=== PATIENT | male | born 1935 | race Caucasian/White ===

== ENCOUNTER 2017-11-08 11:58 | Emergency (ER) | payer MEDICARE ==
[~2017-11-08] VITALS: Ht 182.9 cm; Wt 85.3 kg
[~2017-11-08 11:58] MED LIST: CLOP75 PO; GABA100 PO; HYDACE5325 PO; LEVSOD75 PO; METO25ER PO
[2017-11-08] MEDS ORDERED: ATOR10 PO (12:20)
[2017-11-08 13:20] LABS: BASOPHILS ABSOLUTE AUTO 0.02 K/mm3 (0.00-0.23); BASOPHILS PERCENT AUTO 0 % (0-2); EOSINOPHILS PERCENT AUTO 5 % (0-6); Hematocrit 44.1 % (37.0-53.0); Hemoglobin 14.6 g/dL (13.5-17.5); IMMATURE GRAN ABSOLUTE AUTO 0.04 K/mm3 (0.00-0.10); IMMATURE GRAN PERCENT AUTO 0 % (0-1); LYMPHOCYTES PERCENT AUTO 19 % (21-46); MONOCYTES ABSOLUTE AUTO 0.78 K/mm3 (0.16-1.47); MONOCYTES PERCENT AUTO 9 % (4-13); Mean Corpuscular HGB 32.4 pg (26.0-34.0); Mean Corpuscular HGB Conc 33.1 g/dL (31.5-36.5); Mean Corpuscular Volume 98 fL (80-100); Mean Platelet Volume 9.4 fL (9.1-12.4); NEUTROPHILS ABSOLUTE AUTO 6.04 K/mm3 (1.96-9.15); NEUTROPHILS PERCENT AUTO 67 % (41-73); Platelet Count 555 K/mm3 (150-400); RDW Coefficient Variation 13.7 % (11.7-14.2); White Blood Cell Count 8.98 K/mm3 (4.00-11.30)
[2017-11-08 13:45] LABS: Alanine Aminotransfer (ALT/SGP 30 U/L (12-78); Albumin, Blood 3.8 g/dL (3.4-5.0); Albumin/Globulin Ratio 1.2 (0.8-1.8); Alk Phos 59 U/L (50-136); Anion Gap 8 mmol/L (6-16); Aspartate Aminotrans (AST/SGOT 35 U/L (12-37); Bilirubin, Total 0.8 mg/dL (0.1-1.0); Blood Urea Nitrogen 19 mg/dL (8-24); Bun/Creatinine Ratio 20.8 (12.0-20.0); CO2, Blood 27 mmol/L (21-32); Calcium, Blood 8.7 mg/dL (8.5-10.1); Chloride, Blood 105 mmol/L (98-108); Creatinine, Blood 0.92 mg/dL (0.60-1.20); Globulin, Blood 3.2 g/dL (2.2-4.0); Glomerular Filtration Rate >60 (60-); Glucose, Blood 95 mg/dL (70-99); Potassium, Blood 4.4 mmol/L (3.5-5.5); Sodium, Blood 140 mmol/L (136-145); Troponin I <0.015 ng/mL (0.000-0.040)
== END 2017-11-08 16:08 | disposition home or self-care (01) ==
LOC: ER 11:58
PROVIDERS: Emergency Medicine
DX: R07.89 Other chest pain (principal); I25.2 Old myocardial infarction; Z87.891 Personal history of nicotine dependence; Z79.899 Other long term (current) drug therapy
CPT/HCPCS: 36415; 71046; 71275; 74175; 80053; 83690; 84484; 85025; 93005; 93010; 99284; Q9967

== ENCOUNTER 2019-12-02 08:20 | Emergency (ER) | payer OTHER, MEDICARE ==
[~2019-12-02] VITALS: Ht 185.4 cm; Wt 88.5 kg
[~2019-12-02 08:20] MED LIST changes: +ATOR10 PO
[2019-12-02 08:58] LABS: BASOPHILS ABSOLUTE AUTO 0.07 K/mm3 (0.00-0.23); BASOPHILS PERCENT AUTO 0 % (0-2); EOSINOPHILS ABSOLUTE AUTO 0.08 K/mm3 (0.00-0.68); EOSINOPHILS PERCENT AUTO 0 % (0-6); Hemoglobin 14.8 g/dL (13.5-17.5); IMMATURE GRAN PERCENT AUTO 1 % (0-1); LYMPHOCYTES PERCENT AUTO 7 % (21-46); MONOCYTES ABSOLUTE AUTO 1.15 K/mm3 (0.16-1.47); MONOCYTES PERCENT AUTO 6 % (4-13); Mean Corpuscular HGB 32.7 pg (26.0-34.0); Mean Corpuscular HGB Conc 33.6 g/dL (31.5-36.5); Mean Corpuscular Volume 97 fL (80-100); Mean Platelet Volume 9.2 fL (9.1-12.4); NEUTROPHILS PERCENT AUTO 85 % (41-73); RDW Coefficient Variation 13.3 % (11.7-14.2); RDW Standard Deviation 47.7 fL (35.1-46.3); Red Blood Cell Count 4.53 M/mm3 (4.30-5.90)
[2019-12-02 09:03] LABS: Alanine Aminotransfer (ALT/SGP 34 U/L (12-78); Albumin, Blood 3.8 g/dL (3.4-5.0); Albumin/Globulin Ratio 1.1 (0.8-1.8); Alk Phos 64 U/L (50-136); Anion Gap 4 mmol/L (6-16); Aspartate Aminotrans (AST/SGOT 23 U/L (12-37); Bilirubin, Total 0.8 mg/dL (0.1-1.0); Blood Urea Nitrogen 29 mg/dL (8-24); Bun/Creatinine Ratio 32.5 (12.0-20.0); CO2, Blood 28 mmol/L (21-32); Calcium, Blood 9.2 mg/dL (8.5-10.1); Chloride, Blood 107 mmol/L (98-108); Creatinine, Blood 0.89 mg/dL (0.60-1.20); Globulin, Blood 3.4 g/dL (2.2-4.0); Glomerular Filtration Rate >60 (60-); Glucose, Blood 132 mg/dL (70-99); Potassium, Blood 4.3 mmol/L (3.5-5.5); Sodium, Blood 139 mmol/L (136-145); Total Protein, Blood 7.2 g/dL (6.4-8.2); Troponin I <0.015 ng/mL (0.000-0.040)
[2019-12-02 09:05] LABS: Platelet Count 1015 K/mm3 (150-400)
[2019-12-02 10:15] LABS: International Normalized Ratio 1.08; Prothrombin Time Results 11.5 Sec (9.7-11.5)
[2019-12-02 10:56] LABS: Source, Urine Clean Catch
[2019-12-02 11:04] LABS: Bilirubin, Urine Neg (Neg); Blood, Urine Neg (Neg); Glucose Qualitative, Urine Neg (Neg); Ketones, Urine Neg (Neg); Leukocyte Esterase, Urine Neg (Neg); Nitrite, Urine Neg (Neg); Protein, Urine Neg (Neg); Urobilinogen, Urine NORM (Normal); pH, Urine 6.5 (5.0-8.0)
[2019-12-02 11:23] LABS: Appearance, Urine Clear (Clear); Color, Urine Yellow (P-Yellow)
[2019-12-02] MEDS ORDERED: HYDURE500 PO (12:12)
== END 2019-12-02 12:56 | disposition home or self-care (01) ==
LOC: ER 08:20
PROVIDERS: Emergency Medicine
DX: G45.9 Transient cerebral ischemic attack, unspecified (principal); M31.1 Thrombotic microangiopathy; Z79.899 Other long term (current) drug therapy; I25.2 Old myocardial infarction; I10 Essential (primary) hypertension; E03.9 Hypothyroidism, unspecified; I25.10 Atherosclerotic heart disease of native coronary artery without angina pectoris; Z87.891 Personal history of nicotine dependence
CPT/HCPCS: 36415; 70450; 71046; 71260; 74177; 80053; 81003; 83605; 83690; 84484; 85025; 85610; 85730; 93005; 93010; 96360-59; 96361; 99285-25; J7030; Q9967

== ENCOUNTER 2020-11-16 10:44 | Emergency (ER) | payer MEDICARE, OTHER ==
[~2020-11-16] VITALS: Ht 182.9 cm; Wt 81.7 kg
[~2020-11-16 10:44] MED LIST changes: -ATOR10 PO; +ATOR20 PO; +B-121000 MC3 PO; +FAMO20 PO; +FLUT.05NI; +HYDURE500 PO; +Hytrin2 MG PO; +LEVSOD112 PO; +LIDO700A20 TOP; +LOSA25 PO; +MULTI VITAMIN1 EACH PO; +Methocarbamol500 MG PO; +NITR.4SL SL; +Voltaren100 GM TOP
[2020-11-16 11:31] LABS: BASOPHILS ABSOLUTE AUTO 0.07 K/mm3 (0.00-0.23); BASOPHILS PERCENT AUTO 1 % (0-2); EOSINOPHILS ABSOLUTE AUTO 0.24 K/mm3 (0.00-0.68); EOSINOPHILS PERCENT AUTO 3 % (0-6); IMMATURE GRAN ABSOLUTE AUTO 0.03 K/mm3 (0.00-0.10); IMMATURE GRAN PERCENT AUTO 0 % (0-1); LYMPHOCYTES ABSOLUTE AUTO 1.16 K/mm3 (0.84-5.20); LYMPHOCYTES PERCENT AUTO 15 % (21-46); MONOCYTES ABSOLUTE AUTO 0.79 K/mm3 (0.16-1.47); MONOCYTES PERCENT AUTO 10 % (4-13); Mean Corpuscular HGB 36.1 pg (26.0-34.0); Mean Corpuscular HGB Conc 33.3 g/dL (31.5-36.5); Mean Corpuscular Volume 108 fL (80-100); Mean Platelet Volume 9.1 fL (9.1-12.4); NEUTROPHILS ABSOLUTE AUTO 5.41 K/mm3 (1.96-9.15); NEUTROPHILS PERCENT AUTO 70 % (41-73); Platelet Count 515 K/mm3 (150-400); RDW Coefficient Variation 12.5 % (11.7-14.2); RDW Standard Deviation 49.2 fL (35.1-46.3); Red Blood Cell Count 3.88 M/mm3 (4.30-5.90)
[2020-11-16 11:41] LABS: International Normalized Ratio 1.05; Prothrombin Time Results 11.2 Sec (9.7-11.5)
[2020-11-16 11:48] LABS: Alanine Aminotransfer (ALT/SGP 22 U/L (12-78); Albumin, Blood 3.7 g/dL (3.4-5.0); Albumin/Globulin Ratio 1.2 (0.8-1.8); Alk Phos 68 U/L (50-136); Anion Gap 3 mmol/L (6-16); Aspartate Aminotrans (AST/SGOT 24 U/L (12-37); Bilirubin, Total 0.7 mg/dL (0.1-1.0); Blood Urea Nitrogen 22 mg/dL (8-24); Bun/Creatinine Ratio 24.1 (12.0-20.0); CO2, Blood 30 mmol/L (21-32); Chloride, Blood 107 mmol/L (98-108); Creatinine, Blood 0.91 mg/dL (0.60-1.20); Globulin, Blood 3.1 g/dL (2.2-4.0); Glomerular Filtration Rate >60 (60-); Glucose, Blood 99 mg/dL (70-99); Potassium, Blood 4.6 mmol/L (3.5-5.5); Sodium, Blood 140 mmol/L (136-145); Total Protein, Blood 6.8 g/dL (6.4-8.2); Troponin I <0.015 ng/mL (0.000-0.040)
== END 2020-11-16 14:21 | disposition home or self-care (01) ==
LOC: ER 10:44
PROVIDERS: Emergency Medicine
DX: I48.91 Unspecified atrial fibrillation (principal); Z91.09 Other allergy status, other than to drugs and biological substances; Z79.82 Long term (current) use of aspirin; Z79.899 Other long term (current) drug therapy
CPT/HCPCS: 71045; 80053; 84484; 85025; 85610; 99285-25

== ENCOUNTER 2021-01-14 14:09 | Emergency (ER) | payer OTHER, MEDICARE ==
[~2021-01-14] VITALS: Ht 182.9 cm; Wt 81.7 kg
[2021-01-14 14:45] LABS: BASOPHILS ABSOLUTE AUTO 0.07 K/mm3 (0.00-0.23); BASOPHILS PERCENT AUTO 1 % (0-2); EOSINOPHILS ABSOLUTE AUTO 0.21 K/mm3 (0.00-0.68); EOSINOPHILS PERCENT AUTO 3 % (0-6); Hematocrit 41.7 % (37.0-53.0); Hemoglobin 13.9 g/dL (13.5-17.5); IMMATURE GRAN ABSOLUTE AUTO 0.04 K/mm3 (0.00-0.10); IMMATURE GRAN PERCENT AUTO 1 % (0-1); LYMPHOCYTES ABSOLUTE AUTO 1.32 K/mm3 (0.84-5.20); LYMPHOCYTES PERCENT AUTO 18 % (21-46); MONOCYTES ABSOLUTE AUTO 0.71 K/mm3 (0.16-1.47); MONOCYTES PERCENT AUTO 10 % (4-13); Mean Corpuscular HGB Conc 33.3 g/dL (31.5-36.5); Mean Corpuscular Volume 105 fL (80-100); Mean Platelet Volume 9.2 fL (9.1-12.4); NEUTROPHILS ABSOLUTE AUTO 5.05 K/mm3 (1.96-9.15); NEUTROPHILS PERCENT AUTO 68 % (41-73); Platelet Count 486 K/mm3 (150-400); RDW Coefficient Variation 12.7 % (11.7-14.2); RDW Standard Deviation 49.1 fL (35.1-46.3); Red Blood Cell Count 3.97 M/mm3 (4.30-5.90)
[2021-01-14 15:05] LABS: Alanine Aminotransfer (ALT/SGP 28 U/L (12-78); Albumin, Blood 3.6 g/dL (3.4-5.0); Albumin/Globulin Ratio 1.1 (0.8-1.8); Alk Phos 63 U/L (50-136); Anion Gap 4 mmol/L (6-16); Aspartate Aminotrans (AST/SGOT 22 U/L (12-37); Bilirubin, Total 0.9 mg/dL (0.1-1.0); Blood Urea Nitrogen 33 mg/dL (8-24); Bun/Creatinine Ratio 34.2 (12.0-20.0); CO2, Blood 30 mmol/L (21-32); Calcium, Blood 9.1 mg/dL (8.5-10.1); Chloride, Blood 108 mmol/L (98-108); Creatinine, Blood 0.97 mg/dL (0.60-1.20); Globulin, Blood 3.2 g/dL (2.2-4.0); Glomerular Filtration Rate >60 (60-); Glucose, Blood 87 mg/dL (70-99); Potassium, Blood 4.5 mmol/L (3.5-5.5); Sodium, Blood 142 mmol/L (136-145); Total Protein, Blood 6.8 g/dL (6.4-8.2); Troponin I <0.015 ng/mL (0.000-0.040)
== END 2021-01-14 16:02 | disposition home or self-care (01) ==
LOC: ER 14:09
PROVIDERS: Emergency Medicine
DX: I48.91 Unspecified atrial fibrillation (principal); Z91.09 Other allergy status, other than to drugs and biological substances; Z79.899 Other long term (current) drug therapy
CPT/HCPCS: 70450; 71045; 80053; 84484; 85025; 93005; 93010; 99285-25

== ENCOUNTER 2021-01-19 13:39 | Emergency (ER) | payer OTHER, MEDICARE ==
[~2021-01-19] VITALS: Ht 182.9 cm; Wt 83.5 kg
[2021-01-19 15:43] LABS: International Normalized Ratio 1.05; Prothrombin Time Results 11.2 Sec (9.7-11.5)
[2021-01-19 15:46] LABS: BASOPHILS ABSOLUTE AUTO 0.06 K/mm3 (0.00-0.23); BASOPHILS PERCENT AUTO 1 % (0-2); EOSINOPHILS ABSOLUTE AUTO 0.27 K/mm3 (0.00-0.68); EOSINOPHILS PERCENT AUTO 3 % (0-6); Hematocrit 43.7 % (37.0-53.0); Hemoglobin 14.7 g/dL (13.5-17.5); IMMATURE GRAN ABSOLUTE AUTO 0.03 K/mm3 (0.00-0.10); IMMATURE GRAN PERCENT AUTO 0 % (0-1); LYMPHOCYTES ABSOLUTE AUTO 1.19 K/mm3 (0.84-5.20); LYMPHOCYTES PERCENT AUTO 15 % (21-46); MONOCYTES ABSOLUTE AUTO 0.61 K/mm3 (0.16-1.47); MONOCYTES PERCENT AUTO 8 % (4-13); Mean Corpuscular HGB 35.4 pg (26.0-34.0); Mean Corpuscular HGB Conc 33.6 g/dL (31.5-36.5); Mean Corpuscular Volume 105 fL (80-100); Mean Platelet Volume 9.1 fL (9.1-12.4); NEUTROPHILS ABSOLUTE AUTO 5.81 K/mm3 (1.96-9.15); NEUTROPHILS PERCENT AUTO 73 % (41-73); Platelet Count 430 K/mm3 (150-400); RDW Standard Deviation 49.5 fL (35.1-46.3); Red Blood Cell Count 4.15 M/mm3 (4.30-5.90); White Blood Cell Count 7.97 K/mm3 (4.00-11.30)
[2021-01-19 15:54] LABS: Alanine Aminotransfer (ALT/SGP 30 U/L (12-78); Albumin, Blood 3.8 g/dL (3.4-5.0); Albumin/Globulin Ratio 1.2 (0.8-1.8); Alk Phos 72 U/L (50-136); Anion Gap 4 mmol/L (6-16); Aspartate Aminotrans (AST/SGOT 24 U/L (12-37); Bilirubin, Total 0.8 mg/dL (0.1-1.0); Blood Urea Nitrogen 21 mg/dL (8-24); Bun/Creatinine Ratio 26.8 (12.0-20.0); CO2, Blood 30 mmol/L (21-32); Calcium, Blood 9.4 mg/dL (8.5-10.1); Chloride, Blood 106 mmol/L (98-108); Creatinine, Blood 0.79 mg/dL (0.60-1.20); Globulin, Blood 3.3 g/dL (2.2-4.0); Glomerular Filtration Rate >60 (60-); Glucose, Blood 105 mg/dL (70-99); Potassium, Blood 4.3 mmol/L (3.5-5.5); Sodium, Blood 140 mmol/L (136-145); Total Protein, Blood 7.1 g/dL (6.4-8.2); Troponin I <0.015 ng/mL (0.000-0.040)
== END 2021-01-19 19:34 | disposition left against medical advice (07) ==
LOC: ER 13:39
PROVIDERS: Emergency Medicine
DX: R53.1 Weakness (principal); R10.84 Generalized abdominal pain; Z53.21 Procedure and treatment not carried out due to patient leaving prior to being seen by health care provider; Z79.899 Other long term (current) drug therapy
CPT/HCPCS: 80053; 83880; 84484; 85025; 85610; 93005; 93010; 99285-25

== ENCOUNTER 2023-01-10 18:16 | Inpatient (IN) | payer OTHER ==
[~2023-01-10] VITALS: Ht 175.3 cm; Wt 79.4 kg
[2023-01-10 19:31] LABS: Source, Urine Straight Cath
[2023-01-10 19:38] LABS: BASOPHILS ABSOLUTE AUTO 0.09 K/mm3 (0.00-0.23); BASOPHILS PERCENT AUTO 0 % (0-2); EOSINOPHILS ABSOLUTE AUTO 0.13 K/mm3 (0.00-0.68); EOSINOPHILS PERCENT AUTO 1 % (0-6); Hematocrit 42.2 % (37.0-53.0); Hemoglobin 14.5 g/dL (13.5-17.5); IMMATURE GRAN PERCENT AUTO 1 % (0-1); LYMPHOCYTES ABSOLUTE AUTO 0.97 K/mm3 (0.84-5.20); LYMPHOCYTES PERCENT AUTO 5 % (21-46); MONOCYTES ABSOLUTE AUTO 1.81 K/mm3 (0.16-1.47); MONOCYTES PERCENT AUTO 8 % (4-13); Mean Corpuscular HGB 34.8 pg (26.0-34.0); Mean Corpuscular HGB Conc 34.4 g/dL (31.5-36.5); Mean Corpuscular Volume 101 fL (80-100); Mean Platelet Volume 9.3 fL (9.1-12.4); NEUTROPHILS PERCENT AUTO 85 % (41-73); Platelet Count 787 K/mm3 (150-400); RDW Coefficient Variation 13.9 % (11.7-14.2); RDW Standard Deviation 50.4 fL (35.1-46.3); Red Blood Cell Count 4.17 M/mm3 (4.30-5.90)
[2023-01-10 19:47] LABS: Appearance, Urine Hazy (Clear); Bilirubin, Urine Neg (Neg); Blood, Urine 3+ (Neg); Color, Urine Yellow (P-Yellow); Glucose Qualitative, Urine 4+ (Neg); Ketones, Urine Neg (Neg); Leukocyte Esterase, Urine 3+ (Neg); Nitrite, Urine Pos (Neg); Protein, Urine 2+ (Neg); Urobilinogen, Urine NORM (Normal)
[2023-01-10 19:57] LABS: Albumin, Blood 3.2 g/dL (3.4-5.0); Albumin/Globulin Ratio 0.7 (0.8-1.8); Bilirubin, Total 1.4 mg/dL (0.1-1.0); Bun/Creatinine Ratio 27.5 (12.0-20.0); Calcium, Blood 9.3 mg/dL (8.5-10.1); Creatinine, Blood 1.42 mg/dL (0.60-1.20); Globulin, Blood 4.3 g/dL (2.2-4.0); Potassium, Blood 4.6 mmol/L (3.5-5.5); Total Protein, Blood 7.5 g/dL (6.4-8.2)
[2023-01-10 20:04] LABS: Bacteria Many /hpf; Red Blood Cells, Urine 0-2 /hpf (0-2); Squamous Epithelial Cells Not Seen /hpf (Few); White Blood Cells, Urine TNTC /hpf (0-5)
--- NOTE | 2023-01-10 22:50 | NUR ---
ASSUMED CARE PATIENT ARRIVED FROM THE ED A&O TO SELF (AT BASELINE PER REPORT). PATIENT NOTED TO HAVE MANY BEATS OF ECTOPY ON THE MONITOR. NOTIFIED DAUGHTERS AT BEDSIDE OF PLAN OF CARE PRIOR TO THEM LEAVING FOR HOME.
[2023-01-11] MEDS ORDERED: FURO20 PO (00:43)
[2023-01-11] MEDS ORDERED: OXYC5 PO (00:46)
[2023-01-11] MEDS ORDERED: PANT40 PO (00:51)
[2023-01-11] MEDS ORDERED: 1/2 NS 250ml250 ML (00:51)
[2023-01-11] MEDS ORDERED: DULO60 PO (00:52)
[2023-01-11 03:39] LABS: Hematocrit 39.6 % (37.0-53.0); Hemoglobin 13.8 g/dL (13.5-17.5); Mean Corpuscular HGB 34.9 pg (26.0-34.0); Mean Corpuscular HGB Conc 34.8 g/dL (31.5-36.5); Mean Corpuscular Volume 100 fL (80-100); Mean Platelet Volume 9.1 fL (9.1-12.4); Platelet Count 647 K/mm3 (150-400); RDW Standard Deviation 50.4 fL (35.1-46.3); Red Blood Cell Count 3.95 M/mm3 (4.30-5.90); White Blood Cell Count 23.21 K/mm3 (4.00-11.30)
[2023-01-11 03:55] LABS: Bun/Creatinine Ratio 26.1 (12.0-20.0); Calcium, Blood 8.6 mg/dL (8.5-10.1); Creatinine, Blood 1.38 mg/dL (0.60-1.20); Potassium, Blood 4.2 mmol/L (3.5-5.5)
--- NOTE | 2023-01-11 06:26 | NUR ---
01/10/23 @ 2300 PATIENT GIVEN CHG BATH, GOWN CHANGED, BRIEF CHANGED. 01/11/23 @ 0300 PATIENT GIVEN JYOTI CARE AND BRIEF CHANGED TURNED TO R SIDE 01/11/23 @ 5899 PATIENT GIVEN JYOTI CARE AND BRIEF CHANGED SEMI FOWLERS
--- NOTE | 2023-01-11 06:32 | NUR ---
PATIENT ALERT TO SELF. FIDGETS WITH GOWN, BRIEF AND ECG WIRES. THROWS LEGS OVER EDGE OF BED. EASILY REDIRECTABLE. BED ALARM ON.
--- NOTE | 2023-01-11 08:00 | NUR ---
PT AWAKENED WHEN HIS NAME WAS CALLED. PT IS ALERT, BUT ONLY ORIENTED TO SELF. PT DOES NOT FOLLOW COMMANDS CONSISTENTLY, BUT IS COOPERATIVE WITH CARE FOR THE MOST PART. ECG SHOWS SR WITH 1ST DEGREE AV AND BBB WITH RATE 70'S. PT DENIES CHEST PAIN OR SOB. SBP TRENDING 110'S. NO NOTED EDEMA. LUNGS CLEAR. SATS>90% ON RA. PT DENIES NAUSEA. PT ABLE TO TAKE SIPS OF WATER WITHOUT DIFFICUTLY, BUT PO MEDS HELD PT DOES NOT FOLLOW COMMANDS AND HE CHEWED HIS MEDS (PER NOC SHIFT.) PT INCONTINENT OF URINE. JYOTI CARE DONE AND ATTENDS CHANGED. PT HAS SKIN TEAR ON RIGHT ARM THAT IS COVERED WITH COBAN.THE DRESSING IS C/D/I. PT BOOSTED IN BED. CALL LIGHT IN REACH. PT WATCHING TV. BED ALARM ON.
--- NOTE | 2023-01-11 10:45 | NUR ---
IN TO SEE PT. FULL UPDATE GIVEN. PT CHANGED TO MED TELE STATUS.
--- NOTE | 2023-01-11 12:00 | NUR ---
PT REMAINS ALERT, BUT ORIENTED TO SELF ONLY. PT STATES "I NEED TO GET OUT OF HERE! I WANT TO GO HOME!" VSS. ECG CONTINUES SR WITH 1ST DEGREE AV AND BBB-FREQUESNT PAC/PVC'S. LUNGS REMAIN CLEAR. NO NOTED SOB. SATS>90% ON RA. PT DENIES GI DISTRESS. JYOTI CARE AND ATTENDS CHANGE COMPLETED. PT BOOSTED IN BED AND PROVIDED WITH LUNCH TRAY. PT IS ABLE TO FEED HIMSELF. BED ALARM ON AND CALL LIGHT IN REACH. PT'S DAUGHTERS LUIS AND PARISH GIVEN FULL UPDATE. CARE MANAGEMENT CONSULTED FOR DISCHARGE PLANNING. PT DAUGHTER LUIS VERBALIZED HER CONCERN REGARDING PT RIGHT HAND. LUIS STATES THAT PT FELL ONE WEEK AGO. SHE ADDS HER CONCERN THAT THE AMOUNT OF DISCOMFORT THAT PT IS HAVING SEEMS MORE THAN THE PAIN THAT WOULD BE ASSOCIATED WITH A SKIN TEAR. DR. VALDEZ UPDATED AND X-RAY TO BE ORDERED.
--- NOTE | 2023-01-11 14:00 | NUR ---
New PC referral received for goals of care conversation and AD/POLST in light of pt's advanced age, moderate to advanced dementia and multiple comorbidities of documented Aortic aneurysm, arrythmia, CHF, low back pain, osteoarthritis, fall at home recently and current admitting dx of UTI/sepsis, Initial pal care visit made after review of EMS and case conference with RN. Aurea Barbara at bedside assisting/feeding pt his lunch. He appears anxious and restless with c/o needing to void and wanting to get OOB. Aurea instructed him to use attends for void. Per Aurea, pt lives alone in a home either near her or on the same property. She verbalized concern for him remaining in this living situation. She reports she is unable to move him in to her home. She reports that he has an Advanced directive, that she is the POA for healthcare and financial affairs and that she "knows what he wants". We do not have a copy of pt's AD on file and I asked if she could bring a copy to the hospital to add to his medical records. We spoke about CPR and advanced rescusitative efforts and aurea wants pt to remain a FULL CODE/Full treatment. Gentle conversation persued re: benefit vs burden and possible consequences of CPR and potential for worsening pt's cognitive and functional abilities with rescusitative efforts. Aurea agreeable to reviewing chapter on CPR in "hard choices for loving people" booklet, and discussing questions/thoughts with providers. Pt did not participate in our conversation and was distracted and anxious t/o my visit. Aurea is exhibiting cg distress/fatigue. We discussed her sleep deprivation over past couple of days and she also stated she was recovering from Covid and is still exhausted. Self-care encouraged. I brought her some water. Instructed on CM meeting with her in the next 24 hours to review d/c plan and options with her. RN had just put in order/consult for CM. All of above reviewed with RN after my visit. Pal Care to cont to follow.
--- NOTE | 2023-01-11 14:15 | NUR ---
PT REMAINS ORIENTED TO SELF ONLY. PT PULLED OFF HIS ECG LEADS, GOWN, AND PULLED HIS LEFT ARM IV. NEW IV STARTED BY NEHA DANIEL. JYOTI CARE DONE AND NEW ATTENDS PLACED PT INCONTINENT OF URINE. BED ALARM ON.
--- NOTE | 2023-01-11 16:00 | NUR ---
NO ACUTE CHANGES. VSS. LUNGS REMAIN CLEAR. SATS>90% ON RA. PT TOLERATING REGULAR DIET WELL. PT CONTINUES TO HAVE URINARY FREQUENCY. PT GIVEN BED BATH, LINEN CHANGE COMPLETED. PT BOOSTED IN BED AND PROVIDED WITH A SNACK OF IVIS CRACKERS AND PUDDING X 2. PT DAUGHTERS AT BEDSIDE-FREQUENT UPDATES HAVE BEEN GIVEN THROUGH OUT THE DAY.
--- NOTE | 2023-01-11 17:03 | NUR ---
PT DAUGHTERS INQUIRING ABOUT WHETHER OR NOT PT HAS BEEN TAKING HIS ROUTINE HOME MEDS. DR. VALDEZ UPDATED. DR. VALDEZ TO REVIEW PT MEDICATIONS.
[2023-01-12 04:07] LABS: Hematocrit 37.7 % (37.0-53.0); Hemoglobin 13.1 g/dL (13.5-17.5); Mean Corpuscular HGB Conc 34.7 g/dL (31.5-36.5); Mean Corpuscular Volume 101 fL (80-100); Mean Platelet Volume 9.1 fL (9.1-12.4); Platelet Count 605 K/mm3 (150-400); RDW Coefficient Variation 14.3 % (11.7-14.2); RDW Standard Deviation 51.2 fL (35.1-46.3); Red Blood Cell Count 3.74 M/mm3 (4.30-5.90); White Blood Cell Count 15.73 K/mm3 (4.00-11.30)
[2023-01-12 04:28] LABS: Bun/Creatinine Ratio 26.8 (12.0-20.0); Calcium, Blood 8.7 mg/dL (8.5-10.1); Creatinine, Blood 1.12 mg/dL (0.60-1.20); Potassium, Blood 4.3 mmol/L (3.5-5.5)
--- NOTE | 2023-01-12 09:50 | NUR ---
AM NOTE... ASSUMED CARE OF PT AT 0700. PT IS A&O TO SELF, HE IS PLEASENTLY CONFUSED AND ATTEMPTS TO GET OUT OF BED A LOT. PT IS REDIRECTABLE BUT QUICKLY FORGETS WHY HE IS HERE AND WHERE HE IS AT. PT'S VS STABLE HE IS IN SR W/1ST DEGREE, BBB FREQUENT PVCs AND PACs IN THE 80'S. NO SWELLING OR EDEMA IS NOTED. HE IS ON RA WITH O2 SATS >95% L/S CLEAR T/O. BT PRESENT AND HYPOACTIVE, ABD SOFT AND NONTENDER TO PALPATION. WILL CONTINUE TO MONITOR.
--- NOTE | 2023-01-12 13:54 | NUR ---
PT UPDATE... PT WAS GIVEN A BEDBATH AND LINEN CHANGE AND THEN HE GOT UP TO THE RECLINER CHAIR WITH 2P TRANSFER. THE PT CONTINUES TO BE VERY CONFUSED AND ORIENTED TO SELF ONLY. TAB ALARM IN PLACE. AFTER LUNCH THE PT GOT BACK INTO BED AND A BLADDER SCAN WAS DONE D/T THE PT ATTEMPTING TO GET UP EVERY 10MINS TO TRY AND VOID HE HAS BEEN MOSTLY INCONT OF URINE THIS SHIFT. THE BLADDER SCAN SHOWED 235MLS OF URINE. WILL CONTINUE TO MONITOR.
--- NOTE | 2023-01-12 18:00 | NUR ---
SHIFT SUMMARY.... NO ACUTE NEGATIVE CHANGES NOTED THIS SHIFT. THE PT'S VS STABLE. HE WAS UP IN RECLINER CHAIR FOR THE LAST HALF OF THIS SHIFT 1P TRANSFER. HE CONTINUES TO BE INCONT OF URINE. HE WORKED WITH PT/OT AND WALKED UP AND DOWN THE HALLWAY. FAMILY WAS AT THE BEDSIDE FOR SEVERAL HOURS THIS EVENING. PLAN IS FOR THE PT TO TRANSFER TO MEDICAL FLOOR. CALL LIGHT IN REACH WILL CONTINUE TO MONITOR UNTIL REPORT IS GIVEN TO MEDICAL FLOOR RN.
--- NOTE | 2023-01-13 03:03 | NUR ---
SHIFT SUMMARY NOC PT A/O TO SELF. PLESANTLY CONFUSED AND COOPERATIVE WITH CARE. EASILY REDIRECTABLE. PT HAS FREQUENT URINATION DUE TO UTI. PT IS IND IN ROOM WITH SBA AND HAS BED ALARM ON. PT IS ON TELE RUNNING NSR @ 87 BPM. PT HAS RH SKIN TEAR WHICH HAS DRESSING IN PLACE C/D/I. PT HAS PALLIATIVE CARE CONSULT TO DISCUSS CHANGE OF CODE STATUS FROM FULL TO DNR SCHEDULED FOR 01/13/23 WELL PT/OT ORDER. PT IS POSSIBLE DC HOME ON PO [place] WHERE HE LIVES ALONE ON HIS FAMILIES PROPERTY WITH OTHER FAMILY MEMBERS. PT IS IMPULSIVE DUE TO UTI/DEMENTIA AND WILL GET UP WITHOUT USING CALL LIGHT TO USE BATHROOM. PT HAS STABLE GAIT BUT HIGHLY CONFUSED. DIRECTOR OF PROFESSIONAL SERVICES IS SITTING NEXT TO PT ROOM TO ASSIST. PT IS CURRENTLY RESTING WITH BED ALARM ON, BED IN LOWEST POSITION, AND CALL LIGHT WITHIN REACH.
[2023-01-13 05:49] LABS: Hematocrit 39.7 % (37.0-53.0); Hemoglobin 13.8 g/dL (13.5-17.5); Mean Corpuscular HGB 34.9 pg (26.0-34.0); Mean Corpuscular HGB Conc 34.8 g/dL (31.5-36.5); Mean Corpuscular Volume 101 fL (80-100); Mean Platelet Volume 9.2 fL (9.1-12.4); Platelet Count 629 K/mm3 (150-400); RDW Standard Deviation 50.3 fL (35.1-46.3); Red Blood Cell Count 3.95 M/mm3 (4.30-5.90); White Blood Cell Count 13.68 K/mm3 (4.00-11.30)
[2023-01-13 06:19] LABS: Bun/Creatinine Ratio 23.2 (12.0-20.0); Creatinine, Blood 1.12 mg/dL (0.60-1.20); Potassium, Blood 4.4 mmol/L (3.5-5.5)
--- NOTE | 2023-01-13 17:06 | NUR ---
SHIFT SUMMARY NO ACUTE CHANGES DURING SHIFT. PT REMAINS ALERT TO SELF, VERY IMPULSIVE. BED/CHAIR ALARM ON AT ALL TIMES. PT SBA TO BATHROOM. PT REMAINS ON RA. CONTINUE IV ABX. PENDING H/H VS FACILITY. WILL CONTINUE TO MONITOR, CALL LIGHT WITHIN REACH.
--- NOTE | 2023-01-14 04:51 | NUR ---
SHIFT SUMMARY PATIENT HAD NO ACUTE CHANGES. IMPULSIVE WITH OUT OF BED EVENTS T/O SHIFT. ON BED ALARM. ALERT TO SELF. PIV REMAINS INTACT. ON TELEMETRY NSR BBB PAC @ 75. ON ROOM AIR. DENIES PAIN, SOB, AND N/V. VSS/AFEBRILE. ONE ASSIST TO BR. CALL LIGHT IN REACH. BED IN LOWEST POSITION AND ALARM ACTIVATED. WILL CONTINUE TO MONITOR UNTIL DAY SHIFT NURSE ASSUMES CARE.
--- NOTE | 2023-01-14 17:09 | NUR ---
SHIFT SUMMARY NO ACUTE CHANGES DURING SHIFT. PT ALERT TO SELF,FAMILY. PT REMAINS ON RA, SBA TO BATHROOM. PT IMPULSIVE, BED/CHAIR ALARM AT ALL TIMES. NO C/O PAIN. PT PENDIG PLACEMENT AT FACILITY. WILL CONTINUE TO MONITOR. CALL LIGHT WITHIN REACH
--- NOTE | 2023-01-15 05:24 | NUR ---
COMMUNICATIONS ADMINISTRATOR SUMMARY NO ACUTE CHANGE. PT A/OX TO SELF. PT IS PLEASANT BUT CONRUSED; MOSTLY EASY TO REDIRECT. PT HAVING URINARY FREQUENCY AND URGENCY WITH HOURLY OR MORE TRIPS T/THE BATHROOM/BSC. PT NOT ABLE TO USE CALL LIGHT. BED ALARM SET AND PT ON CAMERA MONITOR. PT DNIES PAIN OR DISCOMFORT. CALL LIGHT ACCESSIBLE.
[2023-01-15 05:47] LABS: BASOPHILS ABSOLUTE AUTO 0.12 K/mm3 (0.00-0.23); BASOPHILS PERCENT AUTO 1 % (0-2); EOSINOPHILS ABSOLUTE AUTO 0.79 K/mm3 (0.00-0.68); EOSINOPHILS PERCENT AUTO 5 % (0-6); Hematocrit 43.1 % (37.0-53.0); Hemoglobin 14.7 g/dL (13.5-17.5); IMMATURE GRAN PERCENT AUTO 1 % (0-1); LYMPHOCYTES ABSOLUTE AUTO 1.72 K/mm3 (0.84-5.20); LYMPHOCYTES PERCENT AUTO 12 % (21-46); MONOCYTES ABSOLUTE AUTO 1.32 K/mm3 (0.16-1.47); MONOCYTES PERCENT AUTO 9 % (4-13); Mean Corpuscular HGB 34.7 pg (26.0-34.0); Mean Corpuscular HGB Conc 34.1 g/dL (31.5-36.5); Mean Corpuscular Volume 102 fL (80-100); Mean Platelet Volume 9.3 fL (9.1-12.4); NEUTROPHILS ABSOLUTE AUTO 10.44 K/mm3 (1.96-9.15); NEUTROPHILS PERCENT AUTO 72 % (41-73); Platelet Count 668 K/mm3 (150-400); RDW Standard Deviation 51.9 fL (35.1-46.3); Red Blood Cell Count 4.24 M/mm3 (4.30-5.90); White Blood Cell Count 14.59 K/mm3 (4.00-11.30)
[2023-01-15 06:13] LABS: Anion Gap 1 mmol/L (6-16); Blood Urea Nitrogen 23 mg/dL (8-24); Bun/Creatinine Ratio 20.9 (12.0-20.0); CO2, Blood 30 mmol/L (21-32); Calcium, Blood 9.7 mg/dL (8.5-10.1); Chloride, Blood 103 mmol/L (98-108); Glomerular Filtration Rate 65 (60-); Glucose, Blood 114 mg/dL (70-99); Magnesium, Blood 2.7 mg/dL (1.6-2.4); Phosphorus, Blood 3.6 mg/dL (2.5-4.9); Potassium, Blood 4.6 mmol/L (3.5-5.5); Sodium, Blood 134 mmol/L (136-145)
--- NOTE | 2023-01-15 15:20 | NUR ---
RESPIRATORY WHEEZES: PATIENT HAS DEVELOPED EXPIRATORY WHEEZES THROUGHOUT LOBES. SPO2 FROM 88-91% ON RA. NO DISTRESS NOTED. FAMILY AT BEDSIDE REPORTED THAT HE HAD COVID A FEW WEEKS AGO. PATIENT DENIES ANY DIFFICULTY BREATHING OR SHORTNESS OF BREATH. NO SHORTNESS OF BREATH NOTED WITH ACTIVITY. VITALS MACHINE HAD DIFFICULTY OBTAINING A STEADY HR. DISCUSSED WITH DR. PEREZ. NEW ORDERS PLACED.
--- NOTE | 2023-01-15 18:49 | NUR ---
END OF SHIFT SUMMARY: PATIENT DENIED PAIN OR DISCOMFORT THROUGHOUT THE SHIFT. PATIENT UP IN ROOM AND WALKED IN THE HALLWAY WITH STAFF. PATIENT IS STEADY ON HIS FEET, BUT REQUIRES ASSISTANCE WITH PERSONAL ITEMS SUCH PULL-UPS AND PUTTING SHIRTS ON. PATIENT DOES NOT CALL USING THE CALL LIGHT, BUT IS CALM AND COOPERATIVE WITH STAFF. THIS EVENING, PATIENT DEVELOPED EXPIRATORY WHEEZES (SEE NURSES NOTE). NO RESPIRATORY DISTRESS NOTED THROUGHT THE SHIFT. PATIENT DID RECEIVE ONE DOSE OF PRN ALBUTEROL THAT ASSISTED WITH LUNG SOUNDS. PATIENT'S FAMILY VISITED THE PATIENT. THEY ARE INVOLVED WITH HIS CARE AND VERY KIND.
[2023-01-16] MEDS ORDERED: ZYRTEC10 M2 PO (03:03)
[2023-01-16] MEDS ORDERED: Aspir 8181 MG PO (03:03)
--- NOTE | 2023-01-16 05:28 | NUR ---
WORKFORCE SPECIALIST SUMMARY PT A/OX TO SELF. HE REMAINS PLEASANTLY CONFUSED AND EASILY REDIRECTABLE. PT DENIES PAIN/DISCOMFORT T/O SHIFT. PT CONT TO URINARY URGENCY/FREQUENCY MAKING Q 1-2 HOURLY TRIPS TO THE BATHROOM. PT IMPULSIVE AND DOES NOT USE CALL LIGHT. ALARM ON BED SET AND REMOTE MONITOR IN PLACE. PT NEEDS PERSONAL CARE FREQUENTLY AFTER BATHROOM HE URINATES ON HIMSELF OR CLOTHING. PT DENIES SOB THIS SHIFT AND LUNGS CLEAR T/O DURING ASSESSMENT.
[2023-01-16 09:22] LABS: BASOPHILS ABSOLUTE AUTO 0.14 K/mm3 (0.00-0.23); BASOPHILS PERCENT AUTO 1 % (0-2); EOSINOPHILS ABSOLUTE AUTO 0.73 K/mm3 (0.00-0.68); EOSINOPHILS PERCENT AUTO 4 % (0-6); Hematocrit 46.1 % (37.0-53.0); Hemoglobin 15.6 g/dL (13.5-17.5); IMMATURE GRAN ABSOLUTE AUTO 0.29 K/mm3 (0.00-0.10); IMMATURE GRAN PERCENT AUTO 2 % (0-1); LYMPHOCYTES ABSOLUTE AUTO 1.61 K/mm3 (0.84-5.20); LYMPHOCYTES PERCENT AUTO 9 % (21-46); MONOCYTES ABSOLUTE AUTO 0.94 K/mm3 (0.16-1.47); MONOCYTES PERCENT AUTO 6 % (4-13); Mean Corpuscular HGB 34.7 pg (26.0-34.0); Mean Corpuscular HGB Conc 33.8 g/dL (31.5-36.5); Mean Corpuscular Volume 103 fL (80-100); Mean Platelet Volume 9.1 fL (9.1-12.4); NEUTROPHILS ABSOLUTE AUTO 13.34 K/mm3 (1.96-9.15); NEUTROPHILS PERCENT AUTO 78 % (41-73); Platelet Count 678 K/mm3 (150-400); RDW Coefficient Variation 14.1 % (11.7-14.2); RDW Standard Deviation 52.7 fL (35.1-46.3); Red Blood Cell Count 4.49 M/mm3 (4.30-5.90); White Blood Cell Count 17.05 K/mm3 (4.00-11.30)
--- NOTE | 2023-01-16 19:14 | NUR ---
SHIFT SUMMARY PT ALERT TO SELF. PLESANTLY CONFUSED. PT ABLE TO BE EASILY REDIRECTED BUT IMPULSIVE. DAUGHTERS IN ROOM DURING AFTERNOON. PT C/O CP AND UPPER BACK PAIN. STAT EKG AND TROPONIN ORDER GIVEN. NO REAL CHANGES IN EKG FROM PREVIOUS AND FIRST TROPONIN LEVEL WAS 14. PT RESTING IN BED AND HAS HAD NO NEW C/O CP OR SOB. BED IN LOWEST POSITION AND BED ALARM ON. REPORT GIVEN TO RESEARCH QUALITY ASSURANCE ANALYST NURSE.
--- NOTE | 2023-01-17 04:50 | NUR ---
JANITOR AND CLEANER SUMMARY NO ACUTE CHANGES. PT A/O TO SELF. CONT URINARY FREQ/URGENCY. PT GIVEN 3MG OF MELATONIN PRN W/2100 MEDS; THIS NURSE DID OBSERVE IMPORVEMENT IN PATIENT'S SLEEP. FREQUENT PERIODS OF WAKEFULLNESS BUT PT REMAINS PLEASANT AND REDIRECTABLE. LUNG SOUNDS CLEAR DURING ASSESSMENT. PT DENIES SOB.
[2023-01-17 06:07] LABS: BASOPHILS ABSOLUTE AUTO 0.19 K/mm3 (0.00-0.23); BASOPHILS PERCENT AUTO 1 % (0-2); EOSINOPHILS ABSOLUTE AUTO 0.77 K/mm3 (0.00-0.68); EOSINOPHILS PERCENT AUTO 4 % (0-6); Hemoglobin 14.6 g/dL (13.5-17.5); IMMATURE GRAN ABSOLUTE AUTO 0.57 K/mm3 (0.00-0.10); IMMATURE GRAN PERCENT AUTO 3 % (0-1); LYMPHOCYTES ABSOLUTE AUTO 1.85 K/mm3 (0.84-5.20); LYMPHOCYTES PERCENT AUTO 9 % (21-46); MONOCYTES ABSOLUTE AUTO 1.44 K/mm3 (0.16-1.47); MONOCYTES PERCENT AUTO 7 % (4-13); Mean Corpuscular HGB 34.3 pg (26.0-34.0); Mean Corpuscular Volume 101 fL (80-100); Mean Platelet Volume 9.4 fL (9.1-12.4); NEUTROPHILS ABSOLUTE AUTO 15.69 K/mm3 (1.96-9.15); NEUTROPHILS PERCENT AUTO 77 % (41-73); Platelet Count 585 K/mm3 (150-400); RDW Coefficient Variation 14.2 % (11.7-14.2); RDW Standard Deviation 51.9 fL (35.1-46.3); Red Blood Cell Count 4.26 M/mm3 (4.30-5.90); White Blood Cell Count 20.51 K/mm3 (4.00-11.30)
[2023-01-17 06:31] LABS: Bun/Creatinine Ratio 18.8 (12.0-20.0); Calcium, Blood 9.6 mg/dL (8.5-10.1); Creatinine, Blood 1.28 mg/dL (0.60-1.20); Potassium, Blood 4.7 mmol/L (3.5-5.5)
--- NOTE | 2023-01-17 11:31 | NUR ---
Echocardiogram completed.
--- NOTE | 2023-01-17 18:38 | NUR ---
PT PLEASANT TODAY. IS QUITE CONFUSED. ORIENTED TO SELF AND FACIAL RECOGNITION OF DAUGHTERS. SOMETIMES ABLE TO TELL ME THEIR NAMES. SOMETIMES NOT. DID WALK HALLS SOME TODAY. SBA. NO C/O PAIN. NO NEW CONCERNS NOTED. BED IN LOW POSITOIN, CALL LITE IN REACH. BED ALARN ON FOR SAFETY
[2023-01-18 09:26] LABS: BASOPHILS ABSOLUTE AUTO 0.16 K/mm3 (0.00-0.23); BASOPHILS PERCENT AUTO 1 % (0-2); EOSINOPHILS ABSOLUTE AUTO 0.57 K/mm3 (0.00-0.68); EOSINOPHILS PERCENT AUTO 3 % (0-6); IMMATURE GRAN ABSOLUTE AUTO 0.72 K/mm3 (0.00-0.10); IMMATURE GRAN PERCENT AUTO 4 % (0-1); LYMPHOCYTES ABSOLUTE AUTO 1.79 K/mm3 (0.84-5.20); LYMPHOCYTES PERCENT AUTO 9 % (21-46); MONOCYTES ABSOLUTE AUTO 1.07 K/mm3 (0.16-1.47); MONOCYTES PERCENT AUTO 5 % (4-13); Mean Corpuscular HGB 33.9 pg (26.0-34.0); Mean Corpuscular HGB Conc 33.3 g/dL (31.5-36.5); Mean Corpuscular Volume 102 fL (80-100); Mean Platelet Volume 9.3 fL (9.1-12.4); NEUTROPHILS ABSOLUTE AUTO 16.19 K/mm3 (1.96-9.15); NEUTROPHILS PERCENT AUTO 79 % (41-73); Platelet Count 594 K/mm3 (150-400); RDW Coefficient Variation 13.9 % (11.7-14.2); RDW Standard Deviation 52.1 fL (35.1-46.3); Red Blood Cell Count 4.42 M/mm3 (4.30-5.90)
--- NOTE | 2023-01-18 16:02 | NUR ---
NOTE FREQUENTLY SETTING OFF THE CHAIR/BED ALARM. HE DOES NOT REMEMBER TO CALL. HE GETS AGGITATED WHEN THE ALARM SOUNDS. HE REDIRECTS EASILY. WALKS IN THE HALLWAY WITH SBA. NEEDS CUEING AND FINDS EVERYTHING ENTERTAINING. CONTINUE POC.
--- NOTE | 2023-01-18 17:47 | NUR ---
EVENING NOTE PT ALERT. HAS NO MEMEORY TO US THE CALL LIGHT. GETS UPSET WHEN THE ALARM SOUNDS BECAUSE HE HAS GOTTEN UP. REMENBERS WHERE THE BATHROOM IS BUT NOT WHERE HE IS. DAUGHTER HERE. SHE STATED THAT HE IS DISCHARGING TOMORROW TO FAMILY. SHE WAS VERY AGGRAVATED ABOUT [facility] NOT PROVIDING FINANCIAL ASSIST TO PLACE HIM IN MEMORY CARE. HE IS EATING WELL. NO C/O OF DISCOMFORT. CONTINUE POC.
--- NOTE | 2023-01-19 05:00 | NUR ---
PATIENT CONFUSED, UP OUT OF BED CONSTANTLY THROUGH SHIFT, DOES NOT SLEEP EVEN THOUGH MELATONIN WAS GIVEN, CONTINUOUSLY URINATES ON THE FLOOR, ABLE TO REDIRECT
[2023-01-19] MEDS ORDERED: CIPR500 PO (12:04)
[2023-01-19] MEDS ORDERED: MELA3 PO (12:04)
[2023-01-19] MEDS ORDERED: VISBIOME 112.51 EACH PO (12:05)
--- NOTE | 2023-01-19 14:35 | NUR ---
PATIENT D/C'D TO HOME WITH DAUGHTER. DC INSTRUCTIONS AND EDUCATION DISCUSSED WITH PATIENT AND DAUGHTER AND COPY PROVIDED. PATIENT DENIES ANY FURTHER QUESTIONS OR CONCERNS. [facility]
== END 2023-01-19 14:34 | disposition home or self-care (01) | DRG 871 ==
LOC: ER 18:16 → ICUE 20:17 → MEDS 20:17 → ICUE 22:40 → MEDS 01-12 18:45
PROVIDERS: Emergency Medicine; Internal Medicine; ADMIT Internal Medicine
PROC: 3E03329 Introduction of Other Anti-infective into Peripheral Vein, Percutaneous Approach (ICD-10-PCS; principal; 2023-01-10)
PROC: 3E02340 Introduction of Influenza Vaccine into Muscle, Percutaneous Approach (ICD-10-PCS; 2023-01-10)
PROC: 0T9B70Z Drainage of Bladder with Drainage Device, Via Natural or Artificial Opening (ICD-10-PCS; 2023-01-10)
DX: A41.51 Sepsis due to Escherichia coli [E. coli] (principal); G92.8 Other toxic encephalopathy; N17.9 Acute kidney failure, unspecified; E87.1 Hypo-osmolality and hyponatremia; N39.0 Urinary tract infection, site not specified; I47.20 Ventricular tachycardia, unspecified; R65.20 Severe sepsis without septic shock; I12.9 Hypertensive chronic kidney disease with stage 1 through stage 4 chronic kidney disease, or unspecified chronic kidney disease; E03.9 Hypothyroidism, unspecified; G30.9 Alzheimer's disease, unspecified; F02.80 Dementia in other diseases classified elsewhere, unspecified severity, without behavioral disturbance, psychotic disturbance, mood disturbance, and anxiety; D75.838 Other thrombocytosis; I71.20 Thoracic aortic aneurysm, without rupture, unspecified; E86.1 Hypovolemia; N18.2 Chronic kidney disease, stage 2 (mild); D47.3 Essential (hemorrhagic) thrombocythemia; E78.00 Pure hypercholesterolemia, unspecified; M54.50 Low back pain, unspecified; M19.90 Unspecified osteoarthritis, unspecified site; K25.9 Gastric ulcer, unspecified as acute or chronic, without hemorrhage or perforation; Z85.828 Personal history of other malignant neoplasm of skin; Z91.048 Other nonmedicinal substance allergy status; Z79.899 Other long term (current) drug therapy; Z79.02 Long term (current) use of antithrombotics/antiplatelets; Z79.52 Long term (current) use of systemic steroids; Z87.891 Personal history of nicotine dependence; Z23 Encounter for immunization
CPT/HCPCS: 36415; 71045; 73120; 74177; 80048; 80053; 80069; 81001; 83605; 83735; 84484; 85025; 85027; 87040; 87077; 87086; 87186; 93005; 93010; 93306; 94640; 94664; 96361; 96374-59; 96375; 97116; 97162; 97530; 99285-25; A9270; J0696; J1644; J2060; J3475; J7030; J7050; P9612; Q9967

== ENCOUNTER 2023-01-20 21:15 | Emergency (ER) | payer OTHER ==
[~2023-01-20] VITALS: Ht 182.9 cm; Wt 83.9 kg
[~2023-01-20 21:15] MED LIST changes: +1/2 NS 250ml250 ML; +Aspir 8181 MG PO; +CIPR500 PO; +DULO60 PO; +FURO20 PO; +MELA3 PO; +OXYC5 PO; +PANT40 PO; +VISBIOME 112.51 EACH PO; +ZYRTEC10 M2 PO
[2023-01-20 21:54] LABS: BASOPHILS ABSOLUTE AUTO 0.16 K/mm3 (0.00-0.23); BASOPHILS PERCENT AUTO 1 % (0-2); EOSINOPHILS PERCENT AUTO 2 % (0-6); Hematocrit 44.5 % (37.0-53.0); Hemoglobin 14.6 g/dL (13.5-17.5); IMMATURE GRAN ABSOLUTE AUTO 0.89 K/mm3 (0.00-0.10); IMMATURE GRAN PERCENT AUTO 4 % (0-1); LYMPHOCYTES PERCENT AUTO 7 % (21-46); MONOCYTES ABSOLUTE AUTO 2.06 K/mm3 (0.16-1.47); MONOCYTES PERCENT AUTO 8 % (4-13); Mean Corpuscular HGB 33.8 pg (26.0-34.0); Mean Corpuscular HGB Conc 32.8 g/dL (31.5-36.5); Mean Corpuscular Volume 103 fL (80-100); Mean Platelet Volume 9.9 fL (9.1-12.4); NEUTROPHILS ABSOLUTE AUTO 20.17 K/mm3 (1.96-9.15); NEUTROPHILS PERCENT AUTO 80 % (41-73); Platelet Count 555 K/mm3 (150-400); RDW Coefficient Variation 14.4 % (11.7-14.2); RDW Standard Deviation 54.1 fL (35.1-46.3); Red Blood Cell Count 4.32 M/mm3 (4.30-5.90); White Blood Cell Count 25.38 K/mm3 (4.00-11.30)
[2023-01-20 22:11] LABS: Albumin, Blood 3.3 g/dL (3.4-5.0); Albumin/Globulin Ratio 0.8 (0.8-1.8); Bilirubin, Total 0.4 mg/dL (0.1-1.0); Calcium, Blood 9.4 mg/dL (8.5-10.1); Creatinine, Blood 1.5 mg/dL (0.60-1.20); Globulin, Blood 4.4 g/dL (2.2-4.0); Potassium, Blood 5.7 mmol/L (3.5-5.5); Total Protein, Blood 7.7 g/dL (6.4-8.2)
[2023-01-20 22:38] LABS: Source, Urine Clean Catch
[2023-01-20 22:41] LABS: Bilirubin, Urine Neg (Neg); Blood, Urine 5+ (Neg); Glucose Qualitative, Urine 4+ (Neg); Ketones, Urine Neg (Neg); Leukocyte Esterase, Urine Neg (Neg); Nitrite, Urine Neg (Neg); Protein, Urine 2+ (Neg); Specific Gravity, Urine 1.015 (1.003-1.022); Urobilinogen, Urine NORM (Normal)
[2023-01-20 23:22] LABS: Appearance, Urine Hazy (Clear); Color, Urine Yellow (P-Yellow)
[2023-01-20 23:24] LABS: Bacteria Few /hpf; Hyaline Casts 0-2 /lpf (0-2); Squamous Epithelial Cells Few /hpf (Few); White Blood Cells, Urine 0-2 /hpf (0-5)
[2023-01-21 13:25] LABS: Calcium, Ionized (POC) 1.16 mmol/L (1.10-1.46); Chloride (POC) 102 mmol/L (98-108); Creatinine (POC) 1.7 mg/dL (0.8-1.3); Glucose (ISTAT POC) 106 mg/dL (70-99); Hemoglobin (POC) 15.6 g/dL (13.5-17.5); Sodium (POC) 135 mmol/L (135-148); Total CO2 (POC) 29 mmol/L (21-32)
== END 2023-01-21 13:30 | disposition home or self-care (01) ==
LOC: ER 21:15
PROVIDERS: Emergency Medicine; Student in an Organized Health Care Education/Training Program
DX: N39.0 Urinary tract infection, site not specified (principal); R41.82 Altered mental status, unspecified; R55 Syncope and collapse; D72.829 Elevated white blood cell count, unspecified; I10 Essential (primary) hypertension; E03.9 Hypothyroidism, unspecified; E78.00 Pure hypercholesterolemia, unspecified; Z79.899 Other long term (current) drug therapy; Z79.82 Long term (current) use of aspirin; Z88.8 Allergy status to other drugs, medicaments and biological substances; Z91.048 Other nonmedicinal substance allergy status; Z87.891 Personal history of nicotine dependence
CPT/HCPCS: 36415; 51798; 80047; 80053; 81001; 85014; 85025; 93005; 93010; 97162; 99285-25; A9270; J7030

== ENCOUNTER 2023-01-23 12:17 | Observation (INO) | payer OTHER ==
[~2023-01-23] VITALS: Ht 177.8 cm; Wt 81.7 kg
[2023-01-23 13:55] LABS: Source, Urine Clean Catch
[2023-01-23 13:57] LABS: Appearance, Urine Clear (Clear); Bilirubin, Urine Neg (Neg); Blood, Urine 4+ (Neg); Color, Urine Yellow (P-Yellow); Glucose Qualitative, Urine 4+ (Neg); Ketones, Urine Neg (Neg); Leukocyte Esterase, Urine Neg (Neg); Nitrite, Urine Neg (Neg); Protein, Urine 2+ (Neg); Specific Gravity, Urine 1.015 (1.003-1.022); Urobilinogen, Urine NORM (Normal)
[2023-01-23 14:16] LABS: BASOPHILS ABSOLUTE AUTO 0.12 K/mm3 (0.00-0.23); BASOPHILS PERCENT AUTO 1 % (0-2); EOSINOPHILS ABSOLUTE AUTO 0.29 K/mm3 (0.00-0.68); EOSINOPHILS PERCENT AUTO 1 % (0-6); Hematocrit 42.9 % (37.0-53.0); Hemoglobin 14.2 g/dL (13.5-17.5); IMMATURE GRAN ABSOLUTE AUTO 0.25 K/mm3 (0.00-0.10); IMMATURE GRAN PERCENT AUTO 1 % (0-1); LYMPHOCYTES ABSOLUTE AUTO 1.12 K/mm3 (0.84-5.20); LYMPHOCYTES PERCENT AUTO 5 % (21-46); MONOCYTES ABSOLUTE AUTO 1.86 K/mm3 (0.16-1.47); MONOCYTES PERCENT AUTO 8 % (4-13); Mean Corpuscular HGB Conc 33.1 g/dL (31.5-36.5); Mean Corpuscular Volume 103 fL (80-100); Mean Platelet Volume 9.7 fL (9.1-12.4); NEUTROPHILS ABSOLUTE AUTO 19.43 K/mm3 (1.96-9.15); NEUTROPHILS PERCENT AUTO 84 % (41-73); Platelet Count 750 K/mm3 (150-400); RDW Coefficient Variation 14.3 % (11.7-14.2); RDW Standard Deviation 53.6 fL (35.1-46.3); Red Blood Cell Count 4.18 M/mm3 (4.30-5.90); White Blood Cell Count 23.07 K/mm3 (4.00-11.30)
[2023-01-23 14:20] LABS: Albumin/Globulin Ratio 0.6 (0.8-1.8); Bilirubin, Total 0.8 mg/dL (0.1-1.0); Bun/Creatinine Ratio 29.5 (12.0-20.0); Calcium, Blood 9.3 mg/dL (8.5-10.1); Creatinine, Blood 1.12 mg/dL (0.60-1.20); Globulin, Blood 4.7 g/dL (2.2-4.0); Potassium, Blood 4.6 mmol/L (3.5-5.5); Total Protein, Blood 7.7 g/dL (6.4-8.2)
[2023-01-23 14:20] LABS: Bacteria Few /hpf; Hyaline Casts 0-2 /lpf (0-2); Squamous Epithelial Cells Rare /hpf (Few); White Blood Cells, Urine 0-2 /hpf (0-5)
--- NOTE | 2023-01-23 19:08 | NUR ---
NOTES: PATIENT ARRIVED TO ROOM AT 1800. PATIENT ADMITTED TO MEDICAL UNIT c DX OF FALLS FREQUENTLY. INITIAL SCREENING COMPLETE. ADMISSION HEALTH HISTORY INCOMPLETE D/T PATIENT NOT ABLE TO CONTRIBUTE ANY INFORMATION. PATIENT IS ALERT TO SELF ONLY. PLEASANTLY CONFUSED. NO FAMILY PRESENT. SKIN ASSESSMENT DONE c 2 RN BEHAVIORAL ANALYST. NOTED PATIENT L ELBOW SWELLING AND OPEN c SEROSANGUINEOUS DRAINAIGE. MIPELEX DRESSING WAS APPLIED TO SITE. R HAND DRY ABRASION, L HIP BRUISING c SWOLLEN KNOT, BRUISING SCATTERED T/O, AND REDNESS TO COCCYX BUT BLANCHEABLE. VITAL SIGNS REVIEWED. IV TO RAC SALINE LOCKED. BED ALARM ON FOR SAFETY. CALL LIGHT IN REACH.
--- NOTE | 2023-01-24 03:39 | NUR ---
ADMITTANCE ATTENDANT SUMMARY NO ACUTE EVENTS THROUGHOUT THE NIGHT. A&OX TO SELF. PATIENT EFFECTIVELY COMMUNICATES NEEDS. RR EVEN AND UNLABORED ON RA. VSS. NO PAIN REPORTED THIS SHIFT. PATIENT DEMONTEATES GOOD APPEITIE. BED LOW AND LOCKED. BED ALARM ON RELATED TO CONFUSED MENTATION AND IMPULSIVITY. CALL LIGHT WITHIN REACH. THIS RN WILL CONTINUE TO MONITOR.
[2023-01-24 05:42] LABS: BASOPHILS ABSOLUTE AUTO 0.11 K/mm3 (0.00-0.23); BASOPHILS PERCENT AUTO 1 % (0-2); EOSINOPHILS ABSOLUTE AUTO 0.43 K/mm3 (0.00-0.68); EOSINOPHILS PERCENT AUTO 2 % (0-6); Hematocrit 40.3 % (37.0-53.0); Hemoglobin 13.4 g/dL (13.5-17.5); IMMATURE GRAN ABSOLUTE AUTO 0.18 K/mm3 (0.00-0.10); IMMATURE GRAN PERCENT AUTO 1 % (0-1); LYMPHOCYTES ABSOLUTE AUTO 1.19 K/mm3 (0.84-5.20); LYMPHOCYTES PERCENT AUTO 6 % (21-46); MONOCYTES ABSOLUTE AUTO 1.56 K/mm3 (0.16-1.47); MONOCYTES PERCENT AUTO 8 % (4-13); Mean Corpuscular HGB 33.4 pg (26.0-34.0); Mean Corpuscular HGB Conc 33.3 g/dL (31.5-36.5); Mean Corpuscular Volume 101 fL (80-100); Mean Platelet Volume 9.3 fL (9.1-12.4); NEUTROPHILS ABSOLUTE AUTO 16.31 K/mm3 (1.96-9.15); NEUTROPHILS PERCENT AUTO 82 % (41-73); Platelet Count 754 K/mm3 (150-400); RDW Coefficient Variation 14.1 % (11.7-14.2); RDW Standard Deviation 51.3 fL (35.1-46.3); Red Blood Cell Count 4.01 M/mm3 (4.30-5.90); White Blood Cell Count 19.78 K/mm3 (4.00-11.30)
[2023-01-24 06:00] LABS: Bun/Creatinine Ratio 24.3 (12.0-20.0); Calcium, Blood 8.9 mg/dL (8.5-10.1); Creatinine, Blood 1.07 mg/dL (0.60-1.20); Potassium, Blood 4.5 mmol/L (3.5-5.5)
--- NOTE | 2023-01-24 17:34 | NUR ---
SHIFT SUMMARY PT A&OX1, MOOD UP AND DOWN T/O SHIFT. PT IMPULSIVE, FREQUENT SET OFF CHAIR ALARM THINKS HE IS BEING DISCHARGED, THINKS HE NEEDS TO GET DRESSED. DAUGHTER IN TO SEE PT DURING VISITING HOURS. VSS. CALL LIGHT W/IN REACH. TOLERATING PO INTAKE T/O SHIFT. CONT. SBA
--- NOTE | 2023-01-25 04:44 | NUR ---
BYPRODUCTS PUMP OPERATOR SUMMARY NO ACUTE EVENTS THROUGHOUT THE NIGHT. A&OX2. PATIENT EFFECTIVELY COMMUNICATES NEEDS AND IS GENERALLY COOPERATIVE WITH CARE. RR EVEN AND UNLABORED ON RA. VSS. PATIENT AMBULATES IMPULSIVLEY TO THE THE BATHROOM, BUT IS OTHERWISE APPROPRIATE AND RE-DIRECTABLE. NO PAIN REPORTED THIS SHIFT. BED LOW AND LOCKED. BED ALARM ON. CALL LIGHT WITHIN REACH. THIS RN WILL CONTINUE TO MONITOR.
--- NOTE | 2023-01-25 15:26 | NUR ---
PT RESTING COMF IN ROOM. PT IS PENDING DC, HAS NO QUESTIONS OR CONCERNS AT THIS TIME AND IS AWAITING TRANSPORTATION HOME.
--- NOTE | 2023-01-25 15:37 | NUR ---
PT DISCHARGED. THE PTS FAMILY VERBALIZED UNDERSTANDING OF THE DC INSTRUCTIONS. THE PTS BELONGINS RELEASED TO THE FAMILY. PT TRANSFERD VIA WHEELCHAIR ACCOMPANIED BY THE STATION ENGINEER CHIEF AND HIS DAUGHTER
== END 2023-01-25 15:50 | disposition home or self-care (01) ==
LOC: ER 12:17 → MEDS 12:18
PROVIDERS: Emergency Medicine; ADMIT Family Medicine
DX: G30.9 Alzheimer's disease, unspecified (principal); F02.80 Dementia in other diseases classified elsewhere, unspecified severity, without behavioral disturbance, psychotic disturbance, mood disturbance, and anxiety; R29.6 Repeated falls; E03.9 Hypothyroidism, unspecified; D72.821 Monocytosis (symptomatic); I11.0 Hypertensive heart disease with heart failure; I50.20 Unspecified systolic (congestive) heart failure; D75.839 Thrombocytosis, unspecified; E87.1 Hypo-osmolality and hyponatremia; I25.10 Atherosclerotic heart disease of native coronary artery without angina pectoris; K21.9 Gastro-esophageal reflux disease without esophagitis; Z88.8 Allergy status to other drugs, medicaments and biological substances; Z79.899 Other long term (current) drug therapy; Z79.82 Long term (current) use of aspirin; Z66 Do not resuscitate; Z87.891 Personal history of nicotine dependence
CPT/HCPCS: 36415; 51701; 71045; 80048; 80053; 81001; 83605; 84145; 84484; 85025; 93005; 93010; 96374; 96376; 97110; 97162; 97165; 97535; 99284-25; A9270; G0378; J0696; J7030

== ENCOUNTER 2023-10-14 18:08 | Observation (INO) | payer OTHER ==
[~2023-10-14 18:08] MED LIST changes: +EUTHYROX88 MCG PO; -LEVSOD112 PO
[2023-10-14] MEDS ORDERED: Hydroxyurea500 MG PO (19:38)
[2023-10-14 19:55] LABS: BASOPHILS ABSOLUTE AUTO 0.09 K/mm3 (0.00-0.23); BASOPHILS PERCENT AUTO 1 % (0-2); EOSINOPHILS ABSOLUTE AUTO 0.43 K/mm3 (0.00-0.68); EOSINOPHILS PERCENT AUTO 3 % (0-6); Hematocrit 41.1 % (37.0-53.0); IMMATURE GRAN PERCENT AUTO 1 % (0-1); LYMPHOCYTES ABSOLUTE AUTO 1.57 K/mm3 (0.84-5.20); LYMPHOCYTES PERCENT AUTO 11 % (21-46); MONOCYTES ABSOLUTE AUTO 1.28 K/mm3 (0.16-1.47); MONOCYTES PERCENT AUTO 9 % (4-13); Mean Corpuscular HGB 36.7 pg (26.0-34.0); Mean Corpuscular HGB Conc 34.1 g/dL (31.5-36.5); Mean Corpuscular Volume 108 fL (80-100); Mean Platelet Volume 9.3 fL (9.1-12.4); NEUTROPHILS ABSOLUTE AUTO 11.31 K/mm3 (1.96-9.15); NEUTROPHILS PERCENT AUTO 77 % (41-73); Platelet Count 707 K/mm3 (150-400); RDW Coefficient Variation 12.7 % (11.7-14.2); RDW Standard Deviation 50.2 fL (35.1-46.3); Red Blood Cell Count 3.81 M/mm3 (4.30-5.90); White Blood Cell Count 14.78 K/mm3 (4.00-11.30)
[2023-10-14 20:17] LABS: Albumin, Blood 3.7 g/dL (3.4-5.0); Albumin/Globulin Ratio 0.9 (0.8-1.8); Bilirubin, Total 0.5 mg/dL (0.1-1.0); Bun/Creatinine Ratio 27.3 (12.0-20.0); Calcium, Blood 9.3 mg/dL (8.5-10.1); Creatinine, Blood 1.32 mg/dL (0.60-1.20); Globulin, Blood 3.9 g/dL (2.2-4.0); Potassium, Blood 3.9 mmol/L (3.5-5.5); Total Protein, Blood 7.6 g/dL (6.4-8.2)
[2023-10-14 21:09] LABS: Source, Urine Clean Catch
[2023-10-14 21:12] LABS: Appearance, Urine Clear (Clear); Bilirubin, Urine Neg (Neg); Blood, Urine Neg (Neg); Color, Urine Yellow (P-Yellow); Glucose Qualitative, Urine 4+ (Neg); Ketones, Urine Neg (Neg); Leukocyte Esterase, Urine Neg (Neg); Nitrite, Urine Neg (Neg); Protein, Urine Neg (Neg); Specific Gravity, Urine 1.015 (1.003-1.022); Urobilinogen, Urine NORM (Normal)
[2023-10-14 21:39] LABS: Base Excess Venous 5.6 mmol/L; Bicarbonate Venous 28.5 mmol/L (24.0-30.0); pH Blood Venous 7.42 (7.34-7.37)
[2023-10-14] MEDS ORDERED: Aspirin 325 MG Tab PO ONE (21:55)
[2023-10-14] MEDS ORDERED: Ondansetron HCl 2 MG / ML 2ML Vial IV PRN (22:30)
[2023-10-14] MEDS ORDERED: FLU VACC QS2023-24(6MOS UP)/PF 60 MCG/0.5 ML SYRINGE IM ONE (22:30)
[2023-10-14] MEDS ORDERED: Acetaminophen 325 MG TABLET PO PRN (22:35)
[2023-10-14] MEDS ORDERED: NS 1,000 ML IV SCH (22:40)
[2023-10-14] MEDS ORDERED: Lactulose 20 GM/30 ML UDC PO ONE (23:00)
--- NOTE | 2023-10-15 01:01 | NUR ---
ADMIT NOTE CALLED FOR REPORT FROM NEHA SLOAN AT 2329. PT ARRIVED TO [facility] AT 2340. PT IS PLEASANTLY CONFUSED AND HAS SOME DIFFICULTY FOLLOWING SIMPLE COMMANDS. PT IS A ONE PERSON ASSIST HE HAS SOME WEAKNESS DUE TO TIA. PT HAS A STABLE AAA. PT WAS UNABLE TO WALK AT HOME AND UNABLE TO SPEAK BUT THAT HAS SINCE RESOLVED.
--- NOTE | 2023-10-15 03:49 | NUR ---
SHIFT SUMMARY PT SLEEPING OFF AN ON THROUGHOUT THE NIGHT. PT DOES TRY TO GET UP EVERY ONCE IN AWHILE. PT IS STILL PLEASANTLY CONFUSED, BUT HAS BEEN EASILY REDIRECTED THUS FAR. PT HAS CALL LIGHT WITHIN REACH AND BED ALARM IS ON.
[2023-10-15 05:02] VITALS: BP 138/81
--- NOTE | 2023-10-15 05:18 | NUR ---
PT HAS FLUIDS ORDERED BUT WILL NOT TOLERATE IV AT THIS TIME. PER DR SANDS IF BP IS OK, FLUIDS CAN BE HELD. FLUIDS WILL BE HELD AT THIS TIME. I ALSO GOT AN ORDER FOR IM HALDOL FOR AGITATION IF NEEDED.
[2023-10-15] MEDS ORDERED: Haloperidol Lactate Inj. 5 MG/ML Injection IM PRN (05:20)
[2023-10-15] MEDS ORDERED: Pantoprazole Sodium 40 MG Tab PO SCH (06:00)
[2023-10-15 07:01] LABS: Hematocrit 40.9 % (37.0-53.0); Hemoglobin 13.7 g/dL (13.5-17.5); Mean Corpuscular HGB 36.4 pg (26.0-34.0); Mean Corpuscular HGB Conc 33.5 g/dL (31.5-36.5); Mean Corpuscular Volume 109 fL (80-100); Mean Platelet Volume 9.3 fL (9.1-12.4); Platelet Count 677 K/mm3 (150-400); RDW Coefficient Variation 12.7 % (11.7-14.2); RDW Standard Deviation 50.3 fL (35.1-46.3); Red Blood Cell Count 3.76 M/mm3 (4.30-5.90); White Blood Cell Count 12.42 K/mm3 (4.00-11.30)
[2023-10-15 07:22] VITALS: BP 144/96
[2023-10-15 07:22] LABS: Bun/Creatinine Ratio 24.8 (12.0-20.0); Calcium, Blood 9.4 mg/dL (8.5-10.1); Creatinine, Blood 1.21 mg/dL (0.60-1.20); Potassium, Blood 4.3 mmol/L (3.5-5.5)
--- NOTE | 2023-10-15 08:32 | NUR ---
NURSE NOTE DR ASCENCIO WAS NOTIFIED THAT THE TELEMONITOR CAN BE DISCONTINUED. TELEMONITOR NOTIFIED.
[2023-10-15] MEDS ORDERED: HYDROXYurea 500 MG Cap PO SCH (09:00)
[2023-10-15] MEDS ORDERED: Aspirin 81 MG Chew PO SCH (09:00)
[2023-10-15] MEDS ORDERED: Enoxaparin 40 MG/0.4 ML SYR SC SCH (09:00)
[2023-10-15] MEDS ORDERED: Metoprolol Succinate 25 MG TABCR PO SCH (09:00)
[2023-10-15 14:56] VITALS: BP 117/84
--- NOTE | 2023-10-15 18:04 | NUR ---
SHIFT SUMMARY PATIENT IS ALERT AND ORIENTED TO SELF ONLY. PATIENT HAS HAD NO ACUTE EVENTS THIS SHIFT. VITAL SIGNS REVIEWED. PATIENT HAS HAD MRI DONE WHICH WAS NEGATIVE. PATIENT HAS HAD FAMILY VISITING MOST OF SHIFT. PATIENT HAS HAD NO COMPLAINTS OF PAIN, NAUSEA, SOB OR VOMITTING THIS SHIFT. BED IN LOCKED AND LOWEST POSITION. CALL LIGHT IN PLACE. WILL MONITOR UNTIL SHIFT CHANGE.
[2023-10-15 20:08] VITALS: BP 134/69
[2023-10-15] MEDS ORDERED: Atorvastatin 40 MG Tab PO SCH (21:00)
--- NOTE | 2023-10-16 04:27 | NUR ---
SHIFT SUMMARY PT CONTINUES TO BE CONFUSED. AT BEGINNING OF THE SHIFT THE PT BECAME AGITATED THAT THE SHIFTS HAD CHANGED AND ALL OF THE PEOPLE FROM DAY SHIFT WERE GONE. PT KEPT COMING OUT IN THE [place] AND WANDERING AROUND. PT WAS REDIRECTABLE FOR THE MOST PART. PT WAS MEDICATED WITH IM HALDOL. PT HAS NOT SLEPT MUCH TONIGHT, BUT HAS STAYED IN HIS ROOM FOR THE LAST SEVERAL HOURS. PT HAS CALL LIGHT WITHIN HIS REACH.
[2023-10-16] MEDS ORDERED: Levothyroxine Sodium 0.088 MG Tab PO SCH (06:00)
[2023-10-16 06:03] LABS: Hematocrit 43.7 % (37.0-53.0); Hemoglobin 14.4 g/dL (13.5-17.5); Mean Corpuscular Volume 109 fL (80-100); Mean Platelet Volume 9.3 fL (9.1-12.4); Platelet Count 691 K/mm3 (150-400); RDW Coefficient Variation 12.6 % (11.7-14.2); RDW Standard Deviation 50.7 fL (35.1-46.3); White Blood Cell Count 12.83 K/mm3 (4.00-11.30)
[2023-10-16 06:26] LABS: Bun/Creatinine Ratio 22.6 (12.0-20.0); Calcium, Blood 9.5 mg/dL (8.5-10.1); Creatinine, Blood 1.15 mg/dL (0.60-1.20); Potassium, Blood 4.7 mmol/L (3.5-5.5)
[2023-10-16 07:14] VITALS: BP 143/73
[2023-10-16] MEDS ORDERED: OXYC5 PO (08:19)
[2023-10-16] MEDS ORDERED: FLUOROURACIL30 G2 TOP (08:21)
[2023-10-16] MEDS ORDERED: Voltaren100 GM TOP (08:21)
[2023-10-16] MEDS ORDERED: TORSE20 PO (08:22)
[2023-10-16] MEDS ORDERED: LOSA25 PO (08:22)
[2023-10-16] MEDS ORDERED: Clopidogrel Bisulfate 75 MG Tab PO SCH (09:00)
[2023-10-16] MEDS ORDERED: Empagliflozin 10 MG TAB PO SCH (09:00)
[2023-10-16] MEDS ORDERED: Atorvastatin 40 MG Tab PO SCH (09:00)
[2023-10-16] MEDS ORDERED: Sacubitril/Valsartan 24 MG-26 MG Tab PO SCH (09:00)
[2023-10-16] MEDS ORDERED: CLOP75 PO (12:50)
--- NOTE | 2023-10-16 14:16 | NUR ---
PT DISCHARGE 1330 WITH DAUGHTER TO TRANSPORT HOME. ALL PAPERWORK WAS REVIEWED AND EDUCATIONAL MATERIAL SENT WITH PT. PT HAS BEEN AOX3 AND COOPERATIVE OF CARE. NO DISTRESS NOTED AND FOLLOW INSTRUCTION WELL TODAY. PT TRANSPORTED OUT VIA WHEELCHAIR BY AID. PERSONAL BELONGING COLLECTED AND TAKEN WITH PT.
== END 2023-10-16 13:33 | disposition home or self-care (01) ==
LOC: ER 18:08 → MEDS 18:09
PROVIDERS: Emergency Medicine; Nurse Practitioner Acute Care; Student in an Organized Health Care Education/Training Program; ADMIT Student in an Organized Health Care Education/Training Program
DX: I63.9 Cerebral infarction, unspecified (principal); G30.9 Alzheimer's disease, unspecified; F02.80 Dementia in other diseases classified elsewhere, unspecified severity, without behavioral disturbance, psychotic disturbance, mood disturbance, and anxiety; I25.10 Atherosclerotic heart disease of native coronary artery without angina pectoris; E03.9 Hypothyroidism, unspecified; I13.0 Hypertensive heart and chronic kidney disease with heart failure and stage 1 through stage 4 chronic kidney disease, or unspecified chronic kidney disease; I50.20 Unspecified systolic (congestive) heart failure; N18.30 Chronic kidney disease, stage 3 unspecified; E72.20 Disorder of urea cycle metabolism, unspecified; D72.829 Elevated white blood cell count, unspecified; M19.90 Unspecified osteoarthritis, unspecified site; I25.2 Old myocardial infarction; G93.40 Encephalopathy, unspecified; Z88.8 Allergy status to other drugs, medicaments and biological substances
CPT/HCPCS: 36415; 70450; 70496; 70498; 70551; 80048; 80053; 81003; 82140; 82803; 84484; 85025; 85027; 93005; 93010; 93306; 96372; 97161; 97530; 99285-25; A9270; G0378; J1630; J1650; Q9967

== ENCOUNTER 2024-02-09 23:04 | Observation (INO) | payer OTHER ==
[~2024-02-09] VITALS: Ht 182.9 cm; Wt 87.0 kg
[~2024-02-09 23:04] MED LIST changes: +ASPIR 8181 M1 PO; +CEPH500 PO; +FLONASE SENSIM5.9 M1; +FLUOROURACIL30 G2 TOP; +Hydroxyurea500 MG PO; +TORSE20 PO
[2024-02-09 23:43] LABS: BASOPHILS ABSOLUTE AUTO 0.09 K/mm3 (0.00-0.23); BASOPHILS PERCENT AUTO 1 % (0-2); EOSINOPHILS ABSOLUTE AUTO 0.31 K/mm3 (0.00-0.68); EOSINOPHILS PERCENT AUTO 3 % (0-6); Hematocrit 43.6 % (37.0-53.0); Hemoglobin 14.7 g/dL (13.5-17.5); IMMATURE GRAN ABSOLUTE AUTO 0.06 K/mm3 (0.00-0.10); IMMATURE GRAN PERCENT AUTO 1 % (0-1); LYMPHOCYTES ABSOLUTE AUTO 1.73 K/mm3 (0.84-5.20); LYMPHOCYTES PERCENT AUTO 14 % (21-46); MONOCYTES ABSOLUTE AUTO 1.36 K/mm3 (0.16-1.47); MONOCYTES PERCENT AUTO 11 % (4-13); Mean Corpuscular HGB 33.4 pg (26.0-34.0); Mean Corpuscular HGB Conc 33.7 g/dL (31.5-36.5); Mean Corpuscular Volume 99 fL (80-100); Mean Platelet Volume 9.3 fL (9.1-12.4); NEUTROPHILS ABSOLUTE AUTO 8.83 K/mm3 (1.96-9.15); NEUTROPHILS PERCENT AUTO 71 % (41-73); Platelet Count 706 K/mm3 (150-400); RDW Standard Deviation 61.4 fL (35.1-46.3); White Blood Cell Count 12.38 K/mm3 (4.00-11.30)
[2024-02-09 23:55] LABS: Albumin, Blood 3.3 g/dL (3.4-5.0); Albumin/Globulin Ratio 0.8 (0.8-1.8); Bilirubin, Total 0.6 mg/dL (0.1-1.0); Bun/Creatinine Ratio 31.5 (12.0-20.0); Calcium, Blood 8.9 mg/dL (8.5-10.1); Creatinine, Blood 1.27 mg/dL (0.60-1.20); Globulin, Blood 3.9 g/dL (2.2-4.0); Potassium, Blood 4.8 mmol/L (3.5-5.5); Total Protein, Blood 7.2 g/dL (6.4-8.2)
[2024-02-10 00:37] LABS: Source, Urine Straight Cath
[2024-02-10 00:41] LABS: Bilirubin, Urine Neg (Neg); Blood, Urine Neg (Neg); Glucose Qualitative, Urine 4+ (Neg); Ketones, Urine Neg (Neg); Leukocyte Esterase, Urine Neg (Neg); Nitrite, Urine Neg (Neg); Protein, Urine Neg (Neg); Urobilinogen, Urine NORM (Normal)
[2024-02-10 00:48] LABS: Appearance, Urine Clear (Clear); Color, Urine Yellow (P-Yellow)
[2024-02-10 01:21] LABS: Thyroid Stimulating Hormone 1.99 uIU/mL (0.360-4.800)
[2024-02-10] MEDS ORDERED: Acetaminophen 325 MG TABLET PO PRN (08:35)
[2024-02-10] MEDS ORDERED: Ondansetron HCl 2 MG / ML 2ML Vial IV PRN (08:35)
[2024-02-10 11:04] VITALS: BP 149/66
[2024-02-10] MEDS ORDERED: OxyCODONE HCL 5 MG TAB PO PRN (12:35)
[2024-02-10 15:26] VITALS: BP 130/72
[2024-02-10] MEDS ORDERED: Cephalexin Monohydrate 500 MG Cap PO SCH (18:00)
--- NOTE | 2024-02-10 18:30 | NUR ---
PT PLEASANT MOST OF DAY SINCE ADMIT. BECOMES CONCERNED AND ANX WHEN NOT GOING HOME. STATES NEEDS TO GET TO HOME KENYA. ABLE TO TELL ME HIS NAME, BUT NOT , AGE, DAUGHTER'S NAMES, WHERE HE IS, WHY HE IS HERE. NOT ABLE TO TELL ME WHAT TYPE OF WORK HE DID. 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 SOLD THROUGHOUT [employer] TO [place]. HE STATES WHEN REMINDED OF THIS THAT HE DID DO THAT. DAUGHTERS BOTH IN TO EXPRESS CONCERN THAT CANNOT TAKE CARE OF HIM ANY MORE. STATES COMPLETELY WORN OUT. CANNOT FIND HELP TO ASSIST. DISCUSSING HIS DISCHARGE, I BROUGHT IN CARE MANAGEMENT. DURING THIS TIME, [facility] CALLED AND STATES THAT THEY CAN TAKE HIM FOR 30 DAYS RESPITE CARE IN [place]. WE ARE HOLDING DISCHARGE FOR TUESDAY. DR AND CARE MANAGEMENT UPDATED. BED IN LOW POSITION, CALL FAREED IN [facility], BED ALARM ON FOR SAFETY.
[2024-02-10 19:47] VITALS: BP 149/72
[2024-02-10] MEDS ORDERED: Atorvastatin 40 MG Tab PO SCH (21:00)
[2024-02-10] MEDS ORDERED: HYDROXYurea 500 MG Cap PO SCH (21:00)
[2024-02-11 04:41] VITALS: BP 128/86
--- NOTE | 2024-02-11 05:17 | NUR ---
END OF SHIFT SUMMARY PT A&O x1 TO SELF, PT CALM AND COOPERATIVE WITH CARE PROVIDED. NO BEHAVIORS OVERNIGHT. PT ADMITTED FOR TOXIC METABOLIC ENCEPHALOPATHY. NO C/O CHEST PAIN, NO SOB, PT ON RA. RESP RATE EVEN AND UNLABORED. PRN OXYCODONE GIVEN FOR BACK PAIN, PT BECAME RESTLESS. FREQUENT SAFETY CHECKS COMPLETED THROUGHOUT THE SHIFT. BED ALARM TURNED ON FOR SAFETY. PT PLEASANT AND COOPERATIVE WITH CARE PROVIDED. CALL LIGHT WITHIN REACH, WCTM.
[2024-02-11] MEDS ORDERED: Pantoprazole Sodium 40 MG Tab PO SCH (06:00)
[2024-02-11] MEDS ORDERED: Levothyroxine Sodium 0.088 MG Tab PO SCH (06:00)
[2024-02-11 07:34] VITALS: BP 132/76
[2024-02-11] MEDS ORDERED: Aspirin 81 MG TabEC PO SCH (09:00)
[2024-02-11] MEDS ORDERED: Losartan Potassium 25 MG Tab PO SCH (09:00)
[2024-02-11] MEDS ORDERED: Metoprolol Succinate 25 MG TABCR PO SCH (09:00)
[2024-02-11] MEDS ORDERED: HYDROXYurea 500 MG Cap PO SCH (09:00)
[2024-02-11] MEDS ORDERED: Enoxaparin 40 MG/0.4 ML SYR SC SCH (09:00)
[2024-02-11] MEDS ORDERED: DULoxetine HCL 60 MG Capsule DR PO SCH (09:00)
[2024-02-11] MEDS ORDERED: Cyanocobalamin 500 MCG Tab PO SCH (09:00)
[2024-02-11] MEDS ORDERED: Misc. Nasal Solution SCH (09:00)
[2024-02-11] MEDS ORDERED: Torsemide 20 MG TAB PO SCH (09:00)
[2024-02-11] MEDS ORDERED: MULTIPLE VITAM1 EACH PO (12:46)
[2024-02-11] MEDS ORDERED: Voltaren100 GM TOP (12:46)
[2024-02-11] MEDS ORDERED: OXYC5 PO (12:47)
[2024-02-11] MEDS ORDERED: METAMUCIL POWD798 GM PO (12:48)
--- NOTE | 2024-02-11 13:00 | NUR ---
DAUGHTER BROUGHT IN COPY OF MED REC. COMPETED AND UPDATED IN COMPUTER, COPY IN CHART
[2024-02-11 14:53] VITALS: BP 127/82
--- NOTE | 2024-02-11 18:09 | NUR ---
SHIFT SUMMARY PATIENT BED EXITING SEVERAL TIMES THIS SHIFT, DOESN'T REORIENT WELL, HASN'T USED CALL LIGHT THIS SHIFT. ORIENTED TO SELF ONLY, DIDN'T RECALL HIS BIRTHDAY. NO IV ACCESS. RED RASH TO GROIN, DAUGHTER STATES ITS AN ONGOING ISSUE, NYSTATIN ORDERED. CALL LIGHT IN REACH, CARES ONGOING.
[2024-02-11 19:44] VITALS: BP 146/82
[2024-02-11] MEDS ORDERED: Nystatin 100,000 Unit/GM CREAM 15 GM TOP SCH (21:00)
--- NOTE | 2024-02-12 03:20 | NUR ---
END OF SHIFT SUMMARY PT A&O x1 TO SELF, CONFUSED REQUIRES VERBAL CUES FOR REDIRECTING BACK TO BED. PT SLEPT ON AND OFF THROUGHOUT THE NIGHT. PT CALM AND COOPERATIVE WITH CARE PROVIDED. NO BEHAVIORS. PT COMPLIANT WITH 2100 MEDICATION ADMINISTRATION. SNACKS AND FLUIDS PROVIDED TO PT. PT CONTINENT WITH B/B, PREFERS TO AMBULATE TO THE BATHROOM TO VOID. FREQUENT SAFETY CHECKS COMPLETED ON PT. PT DENIED ANY CHEST PAIN, NO SOB. PT ON RA, RESP RATE EVEN AND UNLABORED. NO C/O PAIN OR DISCOMFORT. CALL LIGHT WITHIN REACH, WCTM.
[2024-02-12 03:37] VITALS: BP 146/76
[2024-02-12 07:23] VITALS: BP 151/86
[2024-02-12 15:01] VITALS: BP 121/72
--- NOTE | 2024-02-12 16:58 | NUR ---
ASSESSED SHANTAL HE WAS RESTING AND APPEARED TO BE COMFORTABLE. DISCUSSED CASE WITH BEDSIDE RN. SHE RELAYED THAT PATIENT LIVES ON THE SAME PROPERTY HIS DAUGHTER LUIS. I ATTEMPTED TO REACH HER TO DISCUSS CODE STATUS. PATIENT IS POSSIBLY BEING DISCHARGED TOMORROW.
--- NOTE | 2024-02-12 17:14 | NUR ---
SHIFT SUMMARY PATIENT BED/CHAIR EXITING SEVERAL TIMES, DOESN'T REMEMBER TO USE CALL LIGHT. ALARMS SET. SEVERAL EPISODES OF GETTING UP TO USE BATHROOM AND THEN JUST WALKING OUT WITHOUT USING IT, THEN PROMPTLY GETTING BACK UP TO USE THE BATHROOM WITH NO RECOLLECTION OF JUST DOING THIS TASK. INCONTINENT EVERY TIME. ACCEPTING OF CARES AND NYSTATIN USE TO GROIN. A/O X SELF, DOESN'T RECALL BIRTHDAY AND NEEDED PROMPTING TO REMEMBER FAMILY MEMBER TODAY. NO IV. DAUGHTER BROUGHT IN CLOTHES FOR TRANSFER TOMORROW. CALL LIGHT IN REACH, BED LOW, ALARMS ON, CARES ONGOING.
[2024-02-12 20:08] VITALS: BP 126/72
[2024-02-12] MEDS ORDERED: Melatonin 3 MG Tab PO ONE (23:20)
[2024-02-13 03:46] VITALS: BP 127/70
--- NOTE | 2024-02-13 05:13 | NUR ---
END OF SHIFT SUMMARY PT A&O x1 TO SELF, PLEASANTLY CONFUSED. AT THE BEGINNING OF THE SHIFT, PT OOB SITTING IN THE RECLINER AT BEDSIDE. CARE STAFF USING WRITTEN NOTES TO HELP BETTER COMMUNICATE WITH PT, PT IS [place]. PRN OXYCODONE AND PO 6mg OF MELATONIN. PT AMBULATES WITH UNSTEADY GAIT, 1P SBA WITH BRP. ATTENDS CHANGED NEEDED THROUGHOUT THE SHIFT. PT INCONTINENT OF BLADDER. PT COMPLIANT WITH MEDICATION ADMINISTRATION AND CARE PROVIDED. WARM BLANKET PROVIDED. THE PLAN IS FOR PT TO BE DISCHARGED TO [facility] THIS MORNING (02/13/24). FREQUENT SAFETY CHECKS COMPLETED THROUGHOUT THE SHIFT. PT RREPOSITIONS HIMSELF IN BED. BED ALARM ON FOR SAFETY. CALL LIGHT WITHIN REACH, WCTM. 0100: PT APPEARS TO SLEEPING PEACEFULLY. 0400: PT WOKE UP AND WAS ASSISTED TO THE BATHROOM TO VOID.
[2024-02-13 07:27] VITALS: BP 140/75
[2024-02-13] MEDS ORDERED: Oxymetazoline 0.05% Nasal Relief Spray 15mL BTL PRN (09:55)
[2024-02-13] MEDS ORDERED: NYSTATIN15 GM TOP (09:57)
[2024-02-13] MEDS ORDERED: OXYM.05NI (11:11)
--- NOTE | 2024-02-13 16:42 | NUR ---
DISCHARGE NOTE PT DISCHARGED TO [place], TO A HEALTH REHAB. REPORT GIVEN TO NEHA LUCAS, AT THE FACILITY. DISCHARGE PAPERWORK PROVIDED TO THE CREW LEADER/CONTROL ROOM OPERATOR TO GIVE TO THE FACILITY. PT DRESSED IN PERSONAL CLOTHES AND PERSONAL ITEMS RETURNED. DAUGHTER AT THE BS UPON TRANSPORT.
[2024-02-13] MEDS ORDERED: Melatonin 3 MG Tab PO PRN (21:00)
== END 2024-02-13 16:40 ==
LOC: ER 23:04 → MEDS 23:05
PROVIDERS: Emergency Medicine; ADMIT Internal Medicine
DX: G92.8 Other toxic encephalopathy (principal); F03.90 Unspecified dementia, unspecified severity, without behavioral disturbance, psychotic disturbance, mood disturbance, and anxiety; I13.0 Hypertensive heart and chronic kidney disease with heart failure and stage 1 through stage 4 chronic kidney disease, or unspecified chronic kidney disease; N18.30 Chronic kidney disease, stage 3 unspecified; I50.9 Heart failure, unspecified; E03.9 Hypothyroidism, unspecified; Z87.891 Personal history of nicotine dependence; Z66 Do not resuscitate; Z88.6 Allergy status to analgesic agent; Z88.8 Allergy status to other drugs, medicaments and biological substances; Z79.899 Other long term (current) drug therapy; Z79.890 Hormone replacement therapy; Z79.82 Long term (current) use of aspirin
CPT/HCPCS: 51701; 70450; 71045; 80053; 81003; 82140; 83605; 83690; 84443; 84484; 85025; 85379; 96372; 99285-25; A9270; G0378; J1650

== ENCOUNTER 2024-04-21 07:58 | Emergency (ER) | payer OTHER ==
[~2024-04-21] VITALS: Ht 182.9 cm; Wt 113.4 kg
[~2024-04-21 07:58] MED LIST changes: +METAMUCIL POWD798 GM PO; +MULTIPLE VITAM1 EACH PO; +NYSTATIN15 GM TOP; +OXYM.05NI
[2024-04-21] MEDS ORDERED: NS 1,000 ML IV SCH (08:10)
[2024-04-21 08:26] LABS: BASOPHILS ABSOLUTE AUTO 0.04 K/mm3 (0.00-0.23); BASOPHILS PERCENT AUTO 1 % (0-2); EOSINOPHILS PERCENT AUTO 2 % (0-6); Hemoglobin 9.7 g/dL (13.5-17.5); IMMATURE GRAN ABSOLUTE AUTO 0.04 K/mm3 (0.00-0.10); IMMATURE GRAN PERCENT AUTO 1 % (0-1); LYMPHOCYTES PERCENT AUTO 21 % (21-46); MONOCYTES ABSOLUTE AUTO 0.55 K/mm3 (0.16-1.47); MONOCYTES PERCENT AUTO 11 % (4-13); Mean Corpuscular HGB 37.3 pg (26.0-34.0); Mean Corpuscular HGB Conc 33.4 g/dL (31.5-36.5); Mean Corpuscular Volume 112 fL (80-100); Mean Platelet Volume 8.8 fL (9.1-12.4); NEUTROPHILS ABSOLUTE AUTO 3.42 K/mm3 (1.96-9.15); NEUTROPHILS PERCENT AUTO 65 % (41-73); Platelet Count 336 K/mm3 (150-400); RDW Coefficient Variation 21.1 % (11.7-14.2); RDW Standard Deviation 68.3 fL (35.1-46.3); White Blood Cell Count 5.25 K/mm3 (4.00-11.30)
[2024-04-21 08:40] LABS: Albumin, Blood 3.7 g/dL (3.4-5.0); Bilirubin, Total 0.7 mg/dL (0.1-1.0); Bun/Creatinine Ratio 30.4 (12.0-20.0); Calcium, Blood 9.5 mg/dL (8.5-10.1); Creatinine, Blood 1.25 mg/dL (0.60-1.20); Globulin, Blood 3.8 g/dL (2.2-4.0); Magnesium, Blood 2.4 mg/dL (1.6-2.4); Potassium, Blood 4.6 mmol/L (3.5-5.5); Total Protein, Blood 7.5 g/dL (6.4-8.2)
[2024-04-21 10:16] LABS: Source, Urine Clean Catch
[2024-04-21 10:22] LABS: Appearance, Urine Clear (Clear); Bilirubin, Urine Neg (Neg); Blood, Urine Neg (Neg); Color, Urine Yellow (P-Yellow); Glucose Qualitative, Urine Neg (Neg); Ketones, Urine Neg (Neg); Leukocyte Esterase, Urine Neg (Neg); Nitrite, Urine Neg (Neg); Protein, Urine Neg (Neg); Urobilinogen, Urine NORM (Normal)
[2024-04-21 12:42] VITALS: BP 150/73
== END 2024-04-21 12:40 | disposition home or self-care (01) ==
LOC: ER 07:58
PROVIDERS: Emergency Medicine
DX: R07.9 Chest pain, unspecified (principal); D53.9 Nutritional anemia, unspecified; I13.0 Hypertensive heart and chronic kidney disease with heart failure and stage 1 through stage 4 chronic kidney disease, or unspecified chronic kidney disease; N18.30 Chronic kidney disease, stage 3 unspecified; I50.22 Chronic systolic (congestive) heart failure; M19.90 Unspecified osteoarthritis, unspecified site; E03.9 Hypothyroidism, unspecified; I25.2 Old myocardial infarction; Z86.73 Personal history of transient ischemic attack (TIA), and cerebral infarction without residual deficits; Z87.891 Personal history of nicotine dependence; Z79.899 Other long term (current) drug therapy; Z79.51 Long term (current) use of inhaled steroids; Z79.02 Long term (current) use of antithrombotics/antiplatelets; Z88.8 Allergy status to other drugs, medicaments and biological substances; Z91.048 Other nonmedicinal substance allergy status
CPT/HCPCS: 71045; 80053; 81003; 82607; 82746; 83735; 84484; 85025; 93005; 93010; 99285-25; J7030